=== PATIENT | female | born 1990 | race Caucasian/White ===

== ENCOUNTER 2016-12-17 21:14 | Emergency (ER) | payer BC ==
[2016-12-17] MEDS ORDERED: LORazepam 1 MG TAB PO STA (21:55)
[2016-12-17] MEDS ORDERED: SODIUM CHLORIDE 0.9% 1,000 ML with MVI, ADULT NO.4 WITH VIT K 10 ML, THIAMINE 100 MG, F... IV ONE ×4 (22:00)
[2016-12-17] MEDS ORDERED: ONDANSETRON 4 MG/2 ML VIAL IM STA (22:03)
[2016-12-17] MEDS ORDERED: ONDANSETRON 4 MG/2 ML VIAL IVP STA (22:09)
[2016-12-17] MEDS ORDERED: LORazepam 2 MG/ML SYRINGE IV STA (22:42)
[2016-12-17 22:43] LABS: Basophils % (A) 0 %; CH 23.7; CHCM 31.5; Eosinophils % (A) 0 %; HDW 3.31; HGB 12.6 gm/dL (11.4-16.0); Hypochromasia Moderate; Luc % (Auto) 2; Lymphocytes # (A) 2.2 k/uL (1.0-4.8); Lymphocytes % (A) 25 %; MCHC 30.6 g/dL (31.0-37.0); MCV 75.2 fL (80.0-100.0); Mean Platelet Volume 6.6; Microcytosis Slight; Monocytes # (A) 0.7 k/uL (0-1.0); Monocytes % (A) 8 %; Neutrophils # (A) 5.7 k/uL (1.3-7.7); Neutrophils % (A) 64 %; RBC 5.46 m/uL (3.80-5.40); RDW 14.9 % (11.5-15.5); WBC 8.9 k/uL (3.8-10.6); WBC (Perox) 8.74
[2016-12-17 22:53] LABS: ALT 73 U/L (9-52); AST 107 U/L (14-36); Alkaline Phosphatase 97 U/L (38-126); Amylase 63 U/L (30-110); Anion Gap 18 mmol/L; Blood Urea Nitrogen 8 mg/dL (7-17); Carbon Dioxide 28 mmol/L (22-30); Chloride 98 mmol/L (98-107); Glucose 77 mg/dL (74-99); Non-African American GFR(MDRD) >60 (>60 ml/min/1.73 sqM); Potassium 3.7 mmol/L (3.5-5.1); Sodium 144 mmol/L (137-145); Total Bilirubin 0.5 mg/dL (0.2-1.3); Total Protein 7.6 g/dL (6.3-8.2)
--- NOTE | 2016-12-17 23:22 | ED ---
General Adult HPI - General Chief complaint: Nausea/Vomiting/Diarrhea Stated complaint: Withdrawal Time Seen by Provider: 12/17/16 21:33 Source: patient, RN notes reviewed, old records reviewed Mode of arrival: ambulatory Limitations: no limitations - History of Present Illness Initial comments: This is a 25-year-old female with chief complaint of going through alcohol withdrawal. Patient reports that she is nauseated and vomited. Patient states that she relapsed on . Patient reports that she's been doing and intensive outpatient and outpatient treatment for alcohol dependence. Patient states that she also has severe anxiety. She reports that she has severe separation anxiety from her service dog and her family members. Patient reports that splits kept her from doing any intensive inpatient treatments. Patient states that her last drink was 8 hours ago when she started to go through withdrawals. Patient's blood alcohol level is 0.260. Patient states that she is here for alcohol withdrawal help. She reports she is concerned she' ll have a seizure. Again patient seems to be extremely anxious. He denies any active suicidal thoughts, denies any plan to harm herself. Denies homicidal thoughts. - Related Data Home Medications Medication Instructions Recorded Confirmed DULoxetine HCL [Cymbalta] 60 mg PO DAILY 11/06/15 12/17/16 Atomoxetine HCl [Strattera] 80 mg PO DAILY 12/17/16 12/17/16 QUEtiapine FUMARATE [SEROquel] 100 mg PO HS 12/17/16 12/17/16 lamoTRIgine [LaMICtal] 100 mg PO DAILY 12/17/16 12/17/16 Allergies Allergy/AdvReac Type Severity Reaction Status Date / Time No Known Allergies Allergy Verified 12/17/16 21:33 Review of Systems ROS Statement: Those systems with pertinent positive or pertinent negative responses have been documented in the HPI. ROS Other: All systems not noted in ROS Statement are negative. 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 History of Any Multi-Drug Resistant Organisms: None Reported Past Surgical History: Orthopedic Surgery Additional Past Surgical History / Comment(s): bone spur removed from right scapula Past Anesthesia/Blood Transfusion Reactions: No Reported Reaction Past Psychological History: Anxiety, Depression, PTSD Smoking Status: Current every day smoker Past Alcohol Use History: Abuse Past Drug Use History: Marijuana - Past Family History Father Family Medical History: No Reported History Mother Family Medical History: No Reported History General Exam - General Exam Comments Initial Comments: This is a 25-year-old female. Patient appears intoxicated. Limitations: no limitations General appearance: alert, in no apparent distress, appears intoxicated Head exam: Present: atraumatic, normocephalic, normal inspection Eye exam: Present: normal appearance, PERRL, EOMI. Absent: scleral icterus, conjunctival injection, periorbital swelling ENT exam: Present: normal exam, mucous membranes moist Neck exam: Present: normal inspection. Absent: tenderness, meningismus, lymphadenopathy Respiratory exam: Present: normal lung sounds bilaterally. Absent: respiratory distress, wheezes, rales, rhonchi, stridor Cardiovascular Exam: Present: regular rate, normal rhythm, normal heart sounds. Absent: systolic murmur, diastolic murmur, rubs, gallop, clicks GI/Abdominal exam: Present: soft, normal bowel sounds. Absent: distended, tenderness, guarding, rebound, rigid Extremities exam: Present: normal inspection, full ROM, normal capillary refill. Absent: tenderness, pedal edema, joint swelling, calf tenderness Back exam: Present: normal inspection Neurological exam: Present: alert, oriented X3, CN II-XII intact Psychiatric exam: Present: normal affect, anxious (patient is extremely anxjious , continues to ask where mother is, and wants her therapy dog. ). Absent: normal mood Skin exam: Present: warm, dry, intact, normal color. Absent: rash Course Vital Signs 12/17/16 12/18/16 12/18/16 21:22 01:24 03:44 Temperature 98 F 98.2 F 97.4 F L Pulse Rate 120 H 125 H 105 H Respiratory 20 18 18 Rate Blood Pressure 161/85 124/91 132/94 O2 Sat by Pulse 98 98 98 Oximetry - Reevaluation(s) Reevaluation #1: 12/18/16 02:58 Patient was also to be admitted and then she decided to report her IV out. Patient reports that she wants to go home. I did call the mother this time and mother will pick her up. Medical Decision Making - Medical Decision Making This is a 25-year-old female with chief complaint of going through alcohol withdrawal. Patient reports that she is nauseated and vomited. Patient states that she relapsed on . Patient reports that she's been doing and intensive outpatient and outpatient treatment for alcohol dependence. Patient states that she also has severe anxiety. She reports that she has severe separation anxiety from her service dog and her family members. Patient reports that splits kept her from doing any intensive inpatient treatments. Patient states that her last drink was 8 hours ago when she started to go through withdrawals. Patient's blood alcohol level is 0.260. Patient states that she is here for alcohol withdrawal help. She reports she is concerned she' ll have a seizure. Again patient seems to be extremely anxious. He denies any active suicidal thoughts. Patient is extremely anxious, and we had to explan to her multiple times that she needs to see a psychiatrist and get inpatient treatment ot help with her addiction. Patient agrees and had to discuss this with mother on the phone. Then patient became frustrated at the time it was taking her to get a bed upstairs. Patient decided to Rip IV out. Discussed that if she did not want to be in ED, we can treat her withdrawals outpatiently with librium and nausea medication. Patient agrees and does not want to go to the hospital. Patient will now not be admitted. Mother was called and stated that she would pick her daughter up. Mother was not pleased that daughter wanted to go, discussed that there was nothing I could do to keep her there, without her being suicidal, mother refused to petition her. Discussed that alcohol inoxication and withdrawal can be managed in outpatient setting. Patient will go home, given referrals to psych treatment facilities. - Lab Data Result diagrams: 12/17/16 22:10 12/17/16 22:10 Lab Results 12/17/16 12/17/16 12/18/16 Range/Units 22:10 22:10 01:36 WBC 8.9 (3.8-10.6) k/uL RBC 5.46 H (3.80-5.40) m/uL Hgb 12.6 (11.4-16.0) gm/dL Hct 41.0 (34.0-46.0) % MCV 75.2 L (80.0-100.0) fL MCH 23.0 L (25.0-35.0) pg MCHC 30.6 L (31.0-37.0) g/dL RDW 14.9 (11.5-15.5) % Plt Count 460 H (150-450) k/uL Neutrophils % 64 % Lymphocytes % 25 % Monocytes % 8 % Eosinophils % 0 % Basophils % 0 % Neutrophils # 5.7 (1.3-7.7) k/uL Lymphocytes # 2.2 (1.0-4.8) k/uL Monocytes # 0.7 (0-1.0) k/uL Eosinophils # 0.0 (0-0.7) k/uL Basophils # 0.0 (0-0.2) k/uL Hypochromasia Moderate Microcytosis Slight Sodium 144 (137-145) mmol/L Potassium 3.7 (3.5-5.1) mmol/L Chloride 98 (98-107) mmol/L Carbon Dioxide 28 (22-30) mmol/L Anion Gap 18 mmol/L BUN 8 (7-17) mg/dL Creatinine 0.70 (0.52-1.04) mg/dL Est GFR (MDRD) Af Amer >60 (>60 ml/min/1.73 sqM) Est GFR (MDRD) Non-Af >60 (>60 ml/min/1.73 sqM) Glucose 77 (74-99) mg/dL Calcium 10.0 (8.4-10.2) mg/dL Total Bilirubin 0.5 (0.2-1.3) mg/dL AST 107 H (14-36) U/L ALT 73 H (9-52) U/L Alkaline Phosphatase 97 (38-126) U/L Total Protein 7.6 (6.3-8.2) g/dL Albumin 4.5 (3.5-5.0) g/dL Amylase 63 (30-110) U/L Lipase 51 (23-300) U/L Urine Opiates Screen Detected H (NotDetected) Ur Oxycodone Screen Not Detected (NotDetected) Urine Methadone Screen Not Detected (NotDetected) Ur Propoxyphene Screen Not Detected (NotDetected) Ur Barbiturates Screen Not Detected (NotDetected) U Tricyclic Antidepress Detected H (NotDetected) Ur Phencyclidine Scrn Not Detected (NotDetected) Ur Amphetamines Screen Not Detected (NotDetected) U Methamphetamines Scrn Not Detected (NotDetected) U Benzodiazepines Scrn Detected H (NotDetected) Urine Cocaine Screen Not Detected (NotDetected) U Marijuana (THC) Screen Detected H (NotDetected) Disposition Clinical Impression: Alcohol abuse, Anxiety Disposition: HOME SELF-CARE Condition: Stable Referrals: Kenya Khan MD [Primary Care Provider] - 1-2 days Time of Disposition: 02:18
[2016-12-18] MEDS ORDERED: SODIUM CHLORIDE 0.9% 500 ML IV ONE (01:17)
[2016-12-18] MEDS ORDERED: THIAMINE 100 MG/ML 2 ML VIAL IM STA (01:18)
[2016-12-18] MEDS ORDERED: LORazepam 2 MG/ML SYRINGE IV PRN ×3 (01:18)
[2016-12-18 01:25] VITALS: RESP 18
[2016-12-18] MEDS ORDERED: IBUPROFEN 400 MG TAB PO PRN (02:14)
[2016-12-18] MEDS ORDERED: NALOXONE 0.4 MG/ML 1 ML VIAL IV PRN (02:14)
[2016-12-18] MEDS ORDERED: KETOROLAC 30 MG/ML 1 ML VIAL IVP PRN (02:14)
[2016-12-18] MEDS ORDERED: ONDANSETRON 4 MG/2 ML VIAL IVP PRN (02:14)
[2016-12-18] MEDS ORDERED: SODIUM CHLORIDE 0.9% 1,000 ML IV SCH (02:15)
[2016-12-18] MEDS ORDERED: LORazepam 1 MG TAB PO STA (03:41)
[2016-12-18 03:45] VITALS: BP 132/94; PULSE 105; TEMP 97.4
[2016-12-18] MEDS ORDERED: chlordiazePOXIDE 25 MG CAP PO STA (03:45)
[2016-12-18] MEDS ORDERED: PANTOPRAZOLE 40 MG/10 ML VIAL IV SCH (09:00)
[2016-12-18] MEDS ORDERED: THIAMINE 100 MG TAB PO SCH (17:00)
== END 2016-12-18 03:53 | disposition home or self-care (01) ==
LOC: EC 21:14 → 3SUR 12-18 02:23 → UNDOADMOB 12-18 02:23 → EC 12-18 03:53
DX: F10.10 Alcohol abuse, uncomplicated (principal); F32.9 Major depressive disorder, single episode, unspecified; F41.9 Anxiety disorder, unspecified; F43.10 Post-traumatic stress disorder, unspecified; F17.200 Nicotine dependence, unspecified, uncomplicated; Z79.899 Other long term (current) drug therapy
CPT/HCPCS: 99284; 96365; 96366 ×5; 96375 ×2; 96376; 82075; 36415; 80053; 82150; 83690; 85025; 80306; J2060 ×2; J3411; J2405

== ENCOUNTER 2017-02-16 17:51 | Emergency (ER) | payer BC ==
[2017-02-16 18:03] VITALS: BP 150/94; PULSE 109; RESP 20; TEMP 98.6
--- NOTE | 2017-02-16 18:13 | ED ---
Upper Extremity HPI - General Chief Complaint: Extremity Injury, Upper Stated Complaint: right wrist injury, puncture wound Time Seen by Provider: 02/16/17 18:08 Source: patient, RN notes reviewed Mode of arrival: ambulatory Limitations: no limitations - History of Present Illness Initial Comments: 26-year-old female presented emergency department for right wrist injury. Patient states that one to 2 weeks ago she grabbed a long getting out from kayaking states something punctured her palmar aspect of her hand towards her wrist. She states that now the pain and swelling has moved into her wrist and states that she has severe wrist pain. Patient is right-hand dominant. Denies any paresthesias at this time but states that she did have some numbness to her fifth digit which resolved right after the injury. Patient denies any pain in her elbow and denies any right axilla pain. Patient said no fevers no chills. Patient denies any redness to the area no drainage. She states that nothing was ever stuck her hand she states that this helped her hand. - Related Data Home Medications Medication Instructions Recorded Confirmed DULoxetine HCL [Cymbalta] 60 mg PO DAILY 11/06/15 02/16/17 Atomoxetine HCl [Strattera] 80 mg PO DAILY 12/17/16 02/16/17 lamoTRIgine [LaMICtal] 100 mg PO DAILY 12/17/16 02/16/17 Ibuprofen [Motrin] 800 mg PO Q8H PRN 02/16/17 02/16/17 QUEtiapine [SEROquel] 50 mg PO HS 02/16/17 02/16/17 Previous Rx's Medication Instructions Recorded Acetaminophen-Codeine 300-30mg 1 tab PO Q4H PRN #20 tablet 02/16/17 [Tylenol #3] Cephalexin [Keflex] 500 mg PO Q6HR #40 cap 02/16/17 Allergies Allergy/AdvReac Type Severity Reaction Status Date / Time No Known Allergies Allergy Verified 02/16/17 18:19 Review of Systems ROS Statement: Those systems with pertinent positive or pertinent negative responses have been documented in the HPI. ROS Other: All systems not noted in ROS Statement are negative. 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 History of Any Multi-Drug Resistant Organisms: None Reported Past Surgical History: Orthopedic Surgery Additional Past Surgical History / Comment(s): bone spur removed from right scapula Past Anesthesia/Blood Transfusion Reactions: No Reported Reaction Past Psychological History: Anxiety, Depression, PTSD Smoking Status: Current every day smoker Past Alcohol Use History: Abuse Past Drug Use History: Marijuana - Past Family History Father Family Medical History: No Reported History Mother Family Medical History: No Reported History General Exam Limitations: no limitations General appearance: alert, in no apparent distress Head exam: Present: atraumatic, normocephalic, normal inspection Respiratory exam: Present: normal lung sounds bilaterally. Absent: respiratory distress, wheezes, rales, rhonchi, stridor Cardiovascular Exam: Present: regular rate, normal rhythm, normal heart sounds. Absent: systolic murmur, diastolic murmur, rubs, gallop, clicks Extremities exam: Present: other (Right lower hand there is a small puncture wound the palmar aspect with no erythema there is no tenderness or bladder but she does have tenderness the right wrist normal water surface with no erythema no warmth patient has pain with pronation supination there is no lymph nodes palpable in the epitrochlear region or right axilla there is no evidence of lymphangitis.) Course Vital Signs 02/16/17 17:59 Temperature 98.6 F Pulse Rate 109 H Respiratory 20 Rate Blood Pressure 150/94 O2 Sat by Pulse 99 Oximetry Medical Decision Making - Medical Decision Making 26-year-old female presented for right wrist pain. There is no obvious deformity there is no strong evidence for infection though she did have a puncture wound. There is no evidence of foreign body on x-ray or on physical exam. Patient does complain of moderate discomfort with palpation area. But has good radial pulse and capillary refill less than 2 seconds. Patient given pain medication, antibiotics and followed up with orthopedics if no improvement. Disposition Clinical Impression: Right wrist pain, Puncture wound Disposition: HOME SELF-CARE Condition: Stable Instructions: Wrist Injury (ED), Puncture Wound (ED) Additional Instructions: Please return to the Emergency Department if symptoms worsen or any other concerns. Prescriptions: Acetaminophen-Codeine 300-30mg [Tylenol #3] 1 tab PO Q4H PRN #20 tablet PRN Reason: pain Cephalexin [Keflex] 500 mg PO Q6HR #40 cap Referrals: None,Stated [Primary Care Provider] - 1-2 days Jeferson Cross, [Doctor of Osteopathic Medicine] - 1-2 days Time of Disposition: 18:38
--- NOTE | 2017-02-16 18:31 | XR ---
EXAMINATION TYPE: XR wrist complete RT DATE OF EXAM: 02/16/2017 COMPARISON: NONE HISTORY: Pain TECHNIQUE: 4 views FINDINGS: I see no fracture nor dislocation. Joint spaces are normal. There are no pathologic calcifi cations. IMPRESSION: Negative right wrist exam.
== END 2017-02-16 18:47 | disposition home or self-care (01) ==
LOC: EC 17:51
DX: S61.531A Puncture wound without foreign body of right wrist, initial encounter (principal); F41.9 Anxiety disorder, unspecified; F32.9 Major depressive disorder, single episode, unspecified; F43.10 Post-traumatic stress disorder, unspecified; F17.200 Nicotine dependence, unspecified, uncomplicated; Z79.899 Other long term (current) drug therapy; W45.8XXA Other foreign body or object entering through skin, initial encounter; Y93.16 Activity, rowing, canoeing, kayaking, rafting and tubing
CPT/HCPCS: 99283

== ENCOUNTER 2017-05-07 11:18 | Inpatient (IN) | payer BC ==
[2017-05-07] MEDS ORDERED: ONDANSETRON 4 MG/2 ML VIAL IVP STA (11:42)
[2017-05-07] MEDS ORDERED: SODIUM CHLORIDE 0.9% 2,000 ML IV STA (11:42)
--- NOTE | 2017-05-07 12:04 | ED ---
Nausea/Vomiting/Diarrhea HPI - General Chief complaint: Nausea/Vomiting/Diarrhea Stated complaint: WEAKNESS, NAUSEA AND VOMITING X 5 DAYS Time Seen by Provider: 05/07/17 11:42 Source: patient, RN notes reviewed Mode of arrival: ambulatory Limitations: no limitations - History of Present Illness Initial comments: 26-year-old female presents emergency department chief complaint of nausea vomiting diarrhea the last 4 days. Patient states that she cannot keep anything down. Patient states only occasional sips of water. Patient states she is concerned about being dehydrated. She states that she has had no sick contacts or recent antibiotic use no traveling. Patient denies any chest pain, headache, dizziness, fever or chills. Denies dysuria hematuria. Denies any chance of - Related Data Home Medications Medication Instructions Recorded Confirmed DULoxetine HCL [Cymbalta] 60 mg PO DAILY 11/06/15 05/07/17 Atomoxetine HCl [Strattera] 80 mg PO DAILY 12/17/16 05/07/17 lamoTRIgine [LaMICtal] 100 mg PO DAILY 12/17/16 05/07/17 QUEtiapine [SEROquel] 50 mg PO HS 02/16/17 05/07/17 Allergies Allergy/AdvReac Type Severity Reaction Status Date / Time No Known Allergies Allergy Verified 05/07/17 11:45 Review of Systems ROS Statement: Those systems with pertinent positive or pertinent negative responses have been documented in the HPI. ROS Other: All systems not noted in ROS Statement are negative. 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 History of Any Multi-Drug Resistant Organisms: None Reported Past Surgical History: Orthopedic Surgery Additional Past Surgical History / Comment(s): bone spur removed from right scapula,rt knee Past Anesthesia/Blood Transfusion Reactions: No Reported Reaction Past Psychological History: Anxiety, Depression, PTSD Smoking Status: Current every day smoker Past Alcohol Use History: Abuse Past Drug Use History: Marijuana - Past Family History Father Family Medical History: No Reported History Mother Family Medical History: No Reported History General Exam Limitations: no limitations General appearance: alert, in no apparent distress Head exam: Present: atraumatic, normocephalic, normal inspection ENT exam: Present: normal exam, normal oropharynx, mucous membranes moist Neck exam: Present: normal inspection. Absent: tenderness, meningismus, lymphadenopathy Respiratory exam: Present: normal lung sounds bilaterally. Absent: respiratory distress, wheezes, rales, rhonchi, stridor Cardiovascular Exam: Present: normal rhythm, tachycardia, normal heart sounds. Absent: systolic murmur, diastolic murmur, rubs, gallop, clicks GI/Abdominal exam: Present: soft, tenderness (Mild diffuse), normal bowel sounds. Absent: distended, guarding, rebound, rigid Back exam: Absent: CVA tenderness (R), CVA tenderness (L) Skin exam: Present: warm, dry, intact, normal color. Absent: rash Course Vital Signs 05/07/17 05/07/17 05/07/17 11:24 12:25 13:00 Temperature 97.9 F Pulse Rate 122 H 97 Respiratory 20 16 18 Rate Blood Pressure 99/57 95/51 O2 Sat by Pulse 100 100 Oximetry 05/07/17 14:00 Temperature Pulse Rate 99 Respiratory 16 Rate Blood Pressure 106/54 O2 Sat by Pulse 100 Oximetry Medical Decision Making - Lab Data Result diagrams: 05/07/17 12:00 05/07/17 12:00 Lab Results 05/07/17 05/07/17 05/07/17 Range/Units 12:00 12:00 14:05 WBC 19.5 H (3.8-10.6) k/uL RBC 3.96 (3.80-5.40) m/uL Hgb 9.8 L (11.4-16.0) gm/dL Hct 30.3 L (34.0-46.0) % MCV 76.5 L (80.0-100.0) fL MCH 24.7 L (25.0-35.0) pg MCHC 32.3 (31.0-37.0) g/dL RDW 16.6 H (11.5-15.5) % Plt Count 590 H (150-450) k/uL Neutrophils % Not Reportable Neutrophils % (Manual) 82 % Band Neutrophils % 4 % Lymphocytes % Not Reportable Lymphocytes % (Manual) 7 % Monocytes % Not Reportable Monocytes % (Manual) 4 % Eosinophils % Not Reportable Basophils % Not Reportable Metamyelocytes % 3 % Myelocytes % 2 % Neutrophils # Not Reportable Neutrophils # (Manual) 16.70 H (1.3-7.7) k/uL Lymphocytes # Not Reportable Lymphocytes # (Manual) 1.37 (1.0-4.8) k/uL Monocytes # Not Reportable Monocytes # (Manual) 0.78 (0-1.0) k/uL Eosinophils # Not Reportable Basophils # Not Reportable Metamyelocytes # (Man) 0.59 H (0) k/uL Myelocytes # (Manual) 0.39 H (0) k/uL Nucleated RBCs 0 (0-0) /100 WBC Manual Slide Review Performed Toxic Granulation Present Poikilocytosis (manual Present Anisocytosis Slight Microcytosis Slight Sodium 128 L (137-145) mmol/L Potassium 3.9 (3.5-5.1) mmol/L Chloride 89 L (98-107) mmol/L Carbon Dioxide 22 (22-30) mmol/L Anion Gap 17 mmol/L BUN 21 H (7-17) mg/dL Creatinine 1.26 H (0.52-1.04) mg/dL Est GFR (MDRD) Af Amer >60 (>60 ml/min/1.73 sqM) Est GFR (MDRD) Non-Af 52 (>60 ml/min/1.73 sqM) Glucose 129 H (74-99) mg/dL Calcium 8.8 (8.4-10.2) mg/dL Total Bilirubin 0.5 (0.2-1.3) mg/dL AST 104 H (14-36) U/L ALT 93 H (9-52) U/L Alkaline Phosphatase 121 (38-126) U/L Total Protein 6.8 (6.3-8.2) g/dL Albumin 3.4 L (3.5-5.0) g/dL Amylase <30 L (30-110) U/L Lipase 31 (23-300) U/L Urine Color Yellow Urine Appearance Cloudy H (Clear) Urine pH 6.0 (5.0-8.0) Ur Specific [place] 1.008 (1.001-1.035) Urine Protein Trace H (Negative) Urine Glucose (UA) Negative (Negative) Urine Ketones Negative (Negative) Urine Blood Moderate H (Negative) Urine Nitrite Positive H (Negative) Urine Bilirubin Negative (Negative) Urine Urobilinogen <2.0 (<2.0) mg/dL Ur Leukocyte Esterase Large H (Negative) Urine RBC 3 (0-5) /hpf Urine WBC 116 H (0-5) /hpf Urine WBC Clumps Moderate H (None) /hpf Ur Squamous Epith Cells 7 H (0-4) /hpf Urine Bacteria Many H (None) /hpf Urine Mucus Rare H (None) /hpf Urine HCG, Qual (Not Detectd) Urine Opiates Screen Not Detected (NotDetected) Ur Oxycodone Screen Not Detected (NotDetected) Urine Methadone Screen Not Detected (NotDetected) Ur Propoxyphene Screen Not Detected (NotDetected) Ur Barbiturates Screen Not Detected (NotDetected) U Tricyclic Antidepress Not Detected (NotDetected) Ur Phencyclidine Scrn Not Detected (NotDetected) Ur Amphetamines Screen Not Detected (NotDetected) U Methamphetamines Scrn Not Detected (NotDetected) U Benzodiazepines Scrn Detected H (NotDetected) Urine Cocaine Screen Not Detected (NotDetected) U Marijuana (THC) Screen Detected H (NotDetected) 05/07/17 Range/Units 14:05 WBC (3.8-10.6) k/uL RBC (3.80-5.40) m/uL Hgb (11.4-16.0) gm/dL Hct (34.0-46.0) % MCV (80.0-100.0) fL MCH (25.0-35.0) pg MCHC (31.0-37.0) g/dL RDW (11.5-15.5) % Plt Count (150-450) k/uL Neutrophils % Neutrophils % (Manual) % Band Neutrophils % % Lymphocytes % Lymphocytes % (Manual) % Monocytes % Monocytes % (Manual) % Eosinophils % Basophils % Metamyelocytes % % Myelocytes % % Neutrophils # Neutrophils # (Manual) (1.3-7.7) k/uL Lymphocytes # Lymphocytes # (Manual) (1.0-4.8) k/uL Monocytes # Monocytes # (Manual) (0-1.0) k/uL Eosinophils # Basophils # Metamyelocytes # (Man) (0) k/uL Myelocytes # (Manual) (0) k/uL Nucleated RBCs (0-0) /100 WBC Manual Slide Review Toxic Granulation Poikilocytosis (manual Anisocytosis Microcytosis Sodium (137-145) mmol/L Potassium (3.5-5.1) mmol/L Chloride (98-107) mmol/L Carbon Dioxide (22-30) mmol/L Anion Gap mmol/L BUN (7-17) mg/dL Creatinine (0.52-1.04) mg/dL Est GFR (MDRD) Af Amer (>60 ml/min/1.73 sqM) Est GFR (MDRD) Non-Af (>60 ml/min/1.73 sqM) Glucose (74-99) mg/dL Calcium (8.4-10.2) mg/dL Total Bilirubin (0.2-1.3) mg/dL AST (14-36) U/L ALT (9-52) U/L Alkaline Phosphatase (38-126) U/L Total Protein (6.3-8.2) g/dL Albumin (3.5-5.0) g/dL Amylase (30-110) U/L Lipase (23-300) U/L Urine Color Urine Appearance (Clear) Urine pH (5.0-8.0) Ur Specific [place] (1.001-1.035) Urine Protein (Negative) Urine Glucose (UA) (Negative) Urine Ketones (Negative) Urine Blood (Negative) Urine Nitrite (Negative) Urine Bilirubin (Negative) Urine Urobilinogen (<2.0) mg/dL Ur Leukocyte Esterase (Negative) Urine RBC (0-5) /hpf Urine WBC (0-5) /hpf Urine WBC Clumps (None) /hpf Ur Squamous Epith Cells (0-4) /hpf Urine Bacteria (None) /hpf Urine Mucus (None) /hpf Urine HCG, Qual Not Detected (Not Detectd) Urine Opiates Screen (NotDetected) Ur Oxycodone Screen (NotDetected) Urine Methadone Screen (NotDetected) Ur Propoxyphene Screen (NotDetected) Ur Barbiturates Screen (NotDetected) U Tricyclic Antidepress (NotDetected) Ur Phencyclidine Scrn (NotDetected) Ur Amphetamines Screen (NotDetected) U Methamphetamines Scrn (NotDetected) U Benzodiazepines Scrn (NotDetected) Urine Cocaine Screen (NotDetected) U Marijuana (THC) Screen (NotDetected) Disposition Clinical Impression: Pyelonephritis, Anemia, Dehydration, Acute kidney injury, Nausea vomiting and diarrhea Disposition: ADMITTED IP TO THIS HOSP Condition: Fair Referrals: Elliot Truong III, MD [Primary Care Provider] - 1-2 days Time of Disposition: 16:03
[2017-05-07 12:08] LABS: Anisocytosis Slight; CH 24.7; CHCM 32.3; HCT 30.3 % (34.0-46.0); HDW 2.61; HGB 9.8 gm/dL (11.4-16.0); Immature Gran Flag Slight; MCH 24.7 pg (25.0-35.0); MCHC 32.3 g/dL (31.0-37.0); MCV 76.5 fL (80.0-100.0); Microcytosis Slight; RBC 3.96 m/uL (3.80-5.40); RDW 16.6 % (11.5-15.5); WBC 19.5 k/uL (3.8-10.6); WBC (Perox) 20.42
[2017-05-07 12:23] LABS: ALT 93 U/L (9-52); AST 104 U/L (14-36); Alkaline Phosphatase 121 U/L (38-126); Amylase <30 U/L (30-110); Anion Gap 17 mmol/L; Blood Urea Nitrogen 21 mg/dL (7-17); Calcium 8.8 mg/dL (8.4-10.2); Carbon Dioxide 22 mmol/L (22-30); Chloride 89 mmol/L (98-107); Glucose 129 mg/dL (74-99); Non-African American GFR(MDRD) 52 (>60 ml/min/1.73 sqM); Potassium 3.9 mmol/L (3.5-5.1); Sodium 128 mmol/L (137-145); Total Bilirubin 0.5 mg/dL (0.2-1.3); Total Protein 6.8 g/dL (6.3-8.2)
[2017-05-07 12:45] LABS: Add Differential Manual Differential
[2017-05-07] MEDS ORDERED: RX INFO: IV CONTRAST WAS GIVEN 1 EACH MISC MISCELLANE PRN (12:47)
[2017-05-07 12:48] LABS: Band Neutrophils % 4 %; Manual Review Performed; Metamyelocytes % 3 %; Myelocytes % 2 %; Nucleated Red Blood Cells 0 /100 WBC (0-0); Total Cells Counted 200; Toxic Granulation Present
[2017-05-07] MEDS ORDERED: SODIUM CHLORIDE 0.9% 1,000 ML IV ONE (12:48)
[2017-05-07 14:32] LABS: Appearance,Urine Cloudy (Clear); Bacteria,Urine Many /hpf; Bilirubin,Urine Negative (Negative); Glucose,Urine (UA) Negative (Negative); Ketones,Urine Negative (Negative); Leukocyte Esterase,Urine Large (Negative); Mucus,Urine Rare /hpf; Nitrite,Urine Positive (Negative); Particle Count 25295; Protein,Urine Trace (Negative); RBC,Urine 3 /hpf (0-5); Specific Gravity,Urine 1.008 (1.001-1.035); Squamous Epithelial Cell,Urine 7 /hpf (0-4); UA Billing (MACRO vs. MICRO) MICRO; Urobilinogen,Urine <2.0 mg/dL (<2.0); WBC,Urine 116 /hpf (0-5)
--- NOTE | 2017-05-07 15:52 | CT ---
EXAMINATION TYPE: CT abdomen pelvis w con DATE OF EXAM: 05/07/2017 COMPARISON: NONE HISTORY: 26 year-old female with nausea and vomiting x5 days. TECHNIQUE: Contiguous axial scanning of the abdomen and pelvis following administration of 100 ml Omn ipaque 300 IV contrast. Delayed images through the kidneys and coronal/sagittal reconstructions perf ormed. CT DLP: 967 mGycm Automated exposure control for dose reduction was used. FINDINGS: The heart is normal size with trace anterior pericardial thickening/fluid. Tiny hiatal hernia. Lung b ases clear without pleural effusion. Small amount of focal fat along the anterior falciform ligament. Liver is mildly enlarged measuring 1 8.8 cm craniocaudal. Portal venous system is patent. No biliary ductal dilatation. Gallbladder, adrenal glands, and pancreas appear within normal limits. Small diverticulum of the seco nd portion of the duodenum projecting into the pancreatic head region. Spleen is mildly enlarged measuring 14.3 cm on axial series. There are bilateral striated nephrograms with the most marked relative hypodensity in the right great er than left upper poles. There is also bilateral urothelial thickening of the collecting systems. A more focal hypodense lesion measuring 1.2 cm in the right lower pole is noted. No dilated small bowel, free fluid, or free air. Some mild scattered stool. No pericolonic inflammato ry change. Short portions of a normal appendix are visualized. Bladder is urine distended. Uterus and left ovary are visualized. Right ovary not well delineated fro m adjacent bowel loops. No abnormal fluid collection the pelvis or pelvic lymphadenopathy seen. Bones: No osseous destructive process. IMPRESSION: 1. BILATERAL STRIATED NEPHROGRAMS, RIGHT GREATER THAN LEFT. ADDITIONALLY UROTHELIAL THICKENING OF THE PROXIMAL COLLECTING SYSTEMS. FINDINGS ARE HIGHLY SUGGESTIVE OF BILATERAL PYELONEPHRITIS. CLINICALLY CORRELATE. 2. THERE IS A 1.2 CM HYPODENSE LESION IN THE LOWER POLE OF THE RIGHT KIDNEY. UNCERTAIN IF THIS REPRES ENTS A CYST OR A SMALL EARLY RENAL ABSCESS. FOLLOW-UP RECOMMENDED. 3. MILD HEPATOSPLENOMEGALY.
[2017-05-07] MEDS ORDERED: cefTRIAXone 2,000 MG in SODIUM CHLORIDE 0.9% 100 ML IVPB STA (15:56)
[2017-05-07] MEDS ORDERED: NALOXONE 0.4 MG/ML 1 ML VIAL IV PRN (16:03)
[2017-05-07] MEDS ORDERED: ONDANSETRON 4 MG/2 ML VIAL IVP PRN (16:03)
[2017-05-07] MEDS ORDERED: ACETAMINOPHEN TAB 325 MG TAB PO PRN (16:03)
[2017-05-07] MEDS: LORazepam 2 MG/ML INJ IV PRN ×2 (16:32→20:31)
[2017-05-07] MEDS ORDERED: TEMAZEPAM 15 MG CAP PO PRN (18:29)
[2017-05-07] MEDS: SODIUM CHLORIDE 0.9% 1,000 ML IV SCH (18:32)
[2017-05-07] MEDS: HYDROcodone/APAP 5-325MG 1 EACH TAB PO PRN (18:33)
--- NOTE | 2017-05-07 18:42 | XR ---
EXAMINATION TYPE: XR chest 1V portable DATE OF EXAM: 05/07/2017 COMPARISON: 10/30/1710 HISTORY: Kidney infection TECHNIQUE: Single frontal view of the chest is obtained. FINDINGS: Heart and mediastinum are normal. Lungs are clear. Diaphragm is normal. Bony thorax appear s normal. IMPRESSION: Normal chest. No change.
[2017-05-07] MEDS: QUEtiapine 50 MG TAB PO SCH (20:31)
--- NOTE | 2017-05-07 21:44 | HP ---
HISTORY AND PHYSICAL DATE OF SERVICE: 05/07/2017 CHIEF COMPLAINT: Weakness, nausea, vomiting and some diarrhea for the last 5 days. Abdominal and back pain. HISTORY OF PRESENT ILLNESS: This 26-year-old woman with a past medical history of multiple medical problems, including anxiety, depression, PTSD, history of nicotine dependence, history of marijuana, history of ETOH, being followed by Dr. Truong in the outpatient setting, also has a history of osteomyelitis of the right heel. Currently the patient is complaining of nausea and vomiting, unable to keep anything down for the last 5 days. The patient was also complaining of back pain. The patient can only take sips of water. Because of increasing difficulty, the patient came to [facility] and was admitted for further evaluation and treatment. White count is elevated at 19.5. Patient had features of bilateral pyelonephritis. Drug screen is positive for THC and benzodiazepines. Patient had an abdominopelvic CT scan study which showed bilateral striated nephrograms, right greater than left, suggestive of bilateral pyelonephritis, and a 1.2 cm hypodense lesion in the lower pole of the right kidney was also noted. Mild hepatosplenomegaly was noted. There is no history of any fever, rigor or chills. No history of headache, loss of consciousness, seizures at this time. PAST MEDICAL HISTORY: 1. History of osteomyelitis of the right heel. 2. Anxiety. 3. Depression. 4. PTSD. 5. History of nicotine dependence. HOME MEDICATIONS: 1. Lamictal 100 mg p.o. daily. 2. Seroquel 50 mg p.o. at bedtime. 3. Cymbalta 60 mg p.o. daily. 4. Strattera 80 mg p.o. daily. ALLERGIES: NONE. FAMILY HISTORY: No history of heart disease or strokes in the family. SOCIAL HISTORY: History of smoking on a daily basis. Occasional alcohol intake. REVIEW OF SYSTEMS: ENT: No diminished hearing. No diminished vision. CARDIOVASCULAR SYSTEM: No angina, palpitations. RESPIRATORY SYSTEM: No cough, hemoptysis. Otherwise as mentioned earlier. GI: As mentioned earlier. : As mentioned earlier. NERVOUS SYSTEM: No numbness, weakness. ALLERGY/IMMUNOLOGY: No asthma, hayfever. MUSCULOSKELETAL: As mentioned earlier. HEMATOLOGY/ONCOLOGY: No history of anemia. ENDOCRINE: As mentioned earlier. CONSTITUTIONAL: As mentioned earlier. DERMATOLOGY: Negative. RHEUMATOLOGY: Negative. PSYCHIATRY: As mentioned earlier. PHYSICAL EXAMINATION: Patient is alert, oriented x3. Pulse is 99, blood pressure 106/54, respiration 16, temperature 101.5, pulse ox 100%. HEENT: Conjunctivae normal. Oral mucosa moist. NECK: No jugular venous distention. No carotid bruit. No lymph node enlargement. CARDIOVASCULAR: S1, S2 muffled. No S3. No S4. RESPIRATORY: Breath sounds diminished at the bases. A few scattered rhonchi and crackles. ABDOMEN: Soft. Mild diffuse discomfort on palpation. No guarding. No rigidity. No mass palpable. LEGS: No edema. No swelling. NERVOUS SYSTEM: Higher functions as mentioned earlier. Moves all 4 limbs. No focal motor or sensory deficit. LYMPHATICS: No lymph node palpable in neck, axillae or groin. SKIN: No ulcer, rash, bleeding. LABS: WBC 19.3, hemoglobin 9.8. Sodium is 128, potassium 3.9. UA noted. ASSESSMENT: 1. Possible bilateral pyelonephritis with sepsis with a urinary tract infection, acute, present on admission. 2. Increased white count. 3. Anemia, microcytic. 4. Hyponatremia. 5. Increased creatinine with acute kidney failure. 6. Increased AST, ALT. 7. History of anxiety, depression, PTSD. 8. History of nicotine dependence. 9. History of ethanol abuse. 10.History of THC. 11.History of osteomyelitis of the right heel. RECOMMENDATION AND DISCUSSION: In this 26-year-old woman who presented with multiple complex medical issues, we will monitor the patient closely, continue the current medication, continue with symptomatic treatment. Otherwise at this time I recommend continuing with the broad-spectrum IV antibiotics. Infectious disease evaluation. The patient was started on Rocephin. Obtain cultures. Guarded prognosis because of multiple complex medical issues. Further recommendations to follow. DVT prophylaxis. Proton pump inhibitors. See orders for further details. Discussed with the patient, who understands and agrees. A copy of this dictation is being forwarded to Dr. Truong, who is the primary physician. PAULETTE / JENNIFFER: [id number] /
[2017-05-08] MEDS: SODIUM CHLORIDE 0.9% 1,000 ML IV SCH ×3 (02:37→20:43)
[2017-05-08] MEDS: HYDROcodone/APAP 5-325MG 1 EACH TAB PO PRN (08:11)
[2017-05-08] MEDS: DULoxetine HCL 60 MG CAPSULE.DR PO SCH (08:12)
[2017-05-08] MEDS: lamoTRIgine 100 MG TAB PO SCH (08:12)
[2017-05-08] MEDS: PANTOPRAZOLE 40 MG TABLET PO SCH (08:12)
[2017-05-08] MEDS ORDERED: NON-FORMULARY DRUG (Atomoxetine Hcl [Strattera] 80 MG) PO SCH (09:00)
[2017-05-08 11:00] LABS: Anion Gap 8 mmol/L; Blood Urea Nitrogen 9 mg/dL (7-17); Calcium 7.5 mg/dL (8.4-10.2); Carbon Dioxide 21 mmol/L (22-30); Chloride 101 mmol/L (98-107); Glucose 86 mg/dL (74-99); Non-African American GFR(MDRD) >60 (>60 ml/min/1.73 sqM); Potassium 3.5 mmol/L (3.5-5.1); Sodium 130 mmol/L (137-145)
[2017-05-08 11:06] LABS: Basophils % (A) 0 %; CH 23.7; CHCM 29.8; Eosinophils % (A) 1 %; HCT 22.9 % (34.0-46.0); HDW 2.59; Hypochromasia Marked; Luc # (Auto) 0.17; Luc % (Auto) 2; Lymphocytes % (A) 11 %; MCH 24.1 pg (25.0-35.0); MCHC 30.4 g/dL (31.0-37.0); MCV 79.4 fL (80.0-100.0); Mean Platelet Volume 7.2; Monocytes # (A) 0.6 k/uL (0-1.0); Monocytes % (A) 6 %; Neutrophils # (A) 7.3 k/uL (1.3-7.7); Neutrophils % (A) 80 %; RBC 2.89 m/uL (3.80-5.40); RDW 15.7 % (11.5-15.5); WBC 9.1 k/uL (3.8-10.6); WBC (Perox) 9.13
[2017-05-08 12:34] LABS: CH 23.8; CHCM 29.7; HCT 22.3 % (34.0-46.0); HDW 2.59; Hypochromasia Marked; MCH 24.4 pg (25.0-35.0); MCHC 30.4 g/dL (31.0-37.0); MCV 80.1 fL (80.0-100.0); Mean Platelet Volume 7.1; RBC 2.78 m/uL (3.80-5.40); RDW 15.5 % (11.5-15.5); WBC 8.6 k/uL (3.8-10.6)
[2017-05-08 12:42] LABS: HGB 6.8 gm/dL (11.4-16.0)
--- NOTE | 2017-05-08 15:39 | P.PN ---
Subjective Date of service 05/08/2017 Personal being dictated for Dr. Miller. Interval history: This is a 26-year-old female admitted with possible bilateral pyelonephritis with sepsis, UTI, acute renal failure and multiple other medical issues. Maintained on IV fluid hydration, Rocephin . Antibiotics as per infectious disease. Creatinine normalized, sodium improved to 130. Receiving [place] for complaints of diffuse abdominal pain,mid Upper and mid lower quadrants as well as bilateral rib cage/ flank pain. Fair appetite. No nausea , vomiting or diarrhea. Specimen collection for C. diff pending. T-max 101.5, WBC normal. Mild tachycardia. Denies chest pain, palpitations or shortness of breath. Hemoglobin 7.0, repeat check 6.8. No rectal bleeding, no melena, no hemoptysis. States she just completed her menses on Sunday; normal menses, without heavy flow. Objective - Vital Signs Vital signs: Vital Signs Temp 99.4 F 05/08/17 07:00 Pulse 110 H 05/08/17 07:00 Resp 18 05/08/17 07:00 BP 102/54 05/08/17 07:00 Pulse Ox 99 05/08/17 07:00 Intake & Output 05/07/17 05/08/17 05/08/17 18:59 06:59 18:59 Intake Total 2448 800 Balance 2448 800 Weight 55.565 kg Intake: Intake, IV Titration 2448 800 Amount Sodium Chloride 0.9% 1, 300 800 000 ml @ 100 mls/hr IV . Q10H CHARIS Rx#:[id number] Sodium Chloride 0.9% 1, 999 000 ml @ 999 mls/hr IV . Q1H1M ONE Rx#:[id number] Sodium Chloride 0.9% 2, 999 000 ml @ 999 mls/hr IV . Q2H1M STA Rx#:[id number] cefTRIAXone 1,000 mg In 50 Sodium Chloride 0.9% 50 ml @ 100 mls/hr IVPB Q12H CHARIS Rx#:[id number] cefTRIAXone 2,000 mg In 100 Sodium Chloride 0.9% 100 ml @ 100 mls/hr IVPB ONCE STA Rx#:[id number] Other: # Voids 2 1 - Exam PHYSICAL EXAM: VITAL SIGNS: As above GENERAL: Sitting up in bed, tired appearing, no acute distress. HEENT: Conjunctivae normal. eyes normal. NECK: No JVD. No thyroid enlargement. No LNs CARDIOVASCULAR: S1, S2 muffled. No murmur RESPIRATION: Breath sounds diminished in the bases. Occasional scattered rhonchi, and crackles. ABDOMEN: Soft, nondistended, mild diffuse abdominal pain. No guarding. no masses palpable.Bowel sounds heard. No guarding, no rigidity. LEGS: No edema. no swelling PSYCHIATRY: Alert and oriented -3, mood and affect flat. NERVOUS SYSTEM: Cranial N 2-12 grossly normal. Moves all 4 limbs. Diffuse weakness No focal deficits. No sensory deficit.. Skin: no ulcer no rash Joints: No active swelling. No inflammation. Lymphatic system. No LN neck axilla or groin. - Labs CBC & Chem 7: 05/08/17 12:03 05/08/17 09:54 Labs: Abnormal Lab Results - Last 24 Hours (Table) 05/08/17 05/08/17 05/08/17 Range/Units 09:54 09:54 12:03 RBC 2.89 L 2.78 L (3.80-5.40) m/uL Hgb 7.0 L* D 6.8 L* (11.4-16.0) gm/dL Hct 22.9 L 22.3 L (34.0-46.0) % MCV 79.4 L (80.0-100.0) fL MCH 24.1 L 24.4 L (25.0-35.0) pg MCHC 30.4 L 30.4 L (31.0-37.0) g/dL RDW 15.7 H (11.5-15.5) % Plt Count 469 H (150-450) k/uL Sodium 130 L (137-145) mmol/L Carbon Dioxide 21 L (22-30) mmol/L Calcium 7.5 L (8.4-10.2) mg/dL Microbiology - Last 24 Hours (Table) 05/07/17 14:05 Urine Culture - Preliminary Urine,Voided Assessment and Plan Plan: 1. Possible bilateral pyelonephritis with sepsis, with UTI, present on admission. 2. [ Anemia, microcytic, possible acute GI bleed, workup in progress]. 3. [ Hyponatremia, improving]. 4. Acute renal failure, improved with IV fluid hydration. 5. Elevated LFTs 6. [ History of anxiety, depression, PTSD]. 7. [ EtOH abuse 8. THC use]. 9. Nicotine dependence Plan: Continue current medication regime , antibiotics, proton pump inhibitor, monitoring and symptomatic treatment. Stool for occult blood pending; if positive consult GI. Serial H&H's ordered. Transfuse one unit of packed RBCs. Follow cultures closely. Infectious disease recommendations pending. The impression and plan of care has been dictated as directed. : I performed a H&P examination of this patient and discussed the same with the dictator. I agree with the dictator's note. Any additional findings/opinions/ etc. will be noted.
[2017-05-08] MEDS: LORazepam 2 MG/ML INJ IV PRN ×2 (16:13→20:52)
[2017-05-08 20:40] LABS: Anisocytosis Slight; CH 25.4; HCT 29.8 % (34.0-46.0); HDW 3.27; Hypochromasia Slight; Immature Gran Flag Marked; MCH 24.6 pg (25.0-35.0); MCHC 30.9 g/dL (31.0-37.0); MCV 79.5 fL (80.0-100.0); Microcytosis Slight; RBC 3.75 m/uL (3.80-5.40); RDW 16.3 % (11.5-15.5); WBC 10.9 k/uL (3.8-10.6); WBC (Perox) 11.38
[2017-05-08 20:42] LABS: HGB 9.2 gm/dL (11.4-16.0)
[2017-05-08] MEDS: QUEtiapine 50 MG TAB PO SCH (20:43)
[2017-05-08 21:10] LABS: Add Differential Manual Differential
[2017-05-08 21:16] LABS: Band Neutrophils % 3 %; Myelocytes % 4 %; Nucleated Red Blood Cells 0 /100 WBC (0-0); Total Cells Counted 200
[2017-05-08 21:17] LABS: Ovalocytes Present
[2017-05-08 21:18] LABS: Large Platelets Present; Spherocytes Present
[2017-05-09] MEDS: LORazepam 2 MG/ML INJ IV PRN ×3 (04:23→13:20)
[2017-05-09 04:24] LABS: Basophils # (A) 0.1 k/uL (0-0.2); Basophils % (A) 1 %; CH 24.5; CHCM 30.4; Eosinophils # (A) 0.1 k/uL (0-0.7); Eosinophils % (A) 1 %; HCT 26.6 % (34.0-46.0); HDW 3.47; HGB 8.2 gm/dL (11.4-16.0); Hypochromasia Marked; Luc % (Auto) 2; Lymphocytes # (A) 1.4 k/uL (1.0-4.8); Lymphocytes % (A) 17 %; MCH 24.9 pg (25.0-35.0); MCV 80.6 fL (80.0-100.0); Mean Platelet Volume 6.7; Monocytes # (A) 0.6 k/uL (0-1.0); Monocytes % (A) 7 %; Neutrophils # (A) 6.1 k/uL (1.3-7.7); Neutrophils % (A) 72 %; Poikilocytosis Slight; RDW 15.5 % (11.5-15.5); WBC 8.4 k/uL (3.8-10.6)
[2017-05-09 04:52] LABS: Ovalocytes Present
[2017-05-09 04:53] LABS: Manual Review Performed
--- NOTE | 2017-05-09 07:28 | CONS ---
CONSULTATION DATE OF SERVICE: 05/08/2017 REASON FOR CONSULTATION: Sepsis and pyelonephritis. HISTORY OF PRESENT ILLNESS: Patient is a 26-year-old, female, who presented to the [facility] ER yesterday with the chief complaints of a nausea, vomiting, lower abdominal pain and some urine symptoms of burning but no frequency, no hematuria. Pain described to be lower abdominal area, some in the flank, dull aching, 5 to 6/10, and no radiation with associated nausea or vomiting. With these symptoms, the patient came to the ER where the patient has been evaluated by the ER physician. The patient did have a CT abdomen and pelvis which is suspicious for a bilateral pyelonephritis. Patient did have a fever of 101.5 degrees Fahrenheit. Did have elevated white count of 19.5. The urine was significantly positive with the urine drug screen positive for marijuana and benzos. Patient has been diagnosed with pyelonephritis, bloody urine culture was obtained. She was started on the Rocephin 1 g q.12. ID was consulted for further recommendation regarding antibiotic therapy. REVIEW OF SYSTEMS: CONSTITUTIONAL: Positive for weakness along with a fever. EYES: No complaint. ENT: No complaint. RESPIRATORY: No complaint. CARDIOVASCULAR: No complaint. GENITOURINARY: As per HPI. GASTROINTESTINAL: As per HPI. MUSCULOSKELETAL: No complaint. INTEGUMENT: No complaint. PSYCHOLOGICAL: No complaint. ENDOCRINE: No complaint. NEUROLOGICAL: No complaint. PAST MEDICAL HISTORY: Osteomyelitis to the right heel, anxiety, depression, PTSD. PAST SURGICAL HISTORY: Bone spur removed from the right scapula and right knee. SOCIAL HISTORY: The patient is currently an every day smoker. Smokes more than a pack a day. Does admit to alcohol abuse and marijuana use. FAMILY HISTORY: No pertinent findings noticed. ALLERGIES: No known drug allergies. MEDICATION: The patient is currently on Tylenol, [place], Rocephin 1 g q.12. She is on Cymbalta, Dilaudid, Lamictal, Ativan, Narcan, Zofran, Protonix, Seroquel, Restoril. PHYSICAL EXAMINATION: Blood pressure is 120/74 with a pulse of 101, temperature of 100, T-max is 101, she is 100% on room air. General description is a young female lying in bed, in no distress. No tachypnea or accessory muscle for respiration use. HEENT examination shows pallor. No scleral icterus. Oral mucosa is dry. Neck trachea is central. No thyromegaly. LUNGS: Unlabored breathing. Clear to auscultation anteriorly. No wheeze or crackle. HEART: S1, S2. Regular rate and rhythm. ABDOMEN: Soft. Tender in the right leg area. No guarding. No rigidity. No organomegaly. EXTREMITIES: No edema of feet. SKIN EXAMINATION: No rash or mass palpable. NEUROLOGICAL: Patient is awake, alert, oriented x3. Mood and affect normal. LABS: Hemoglobin 9.8, white count of 10, admission white count was 19.5 with a BUN of 9, creatinine 0.84. Urine is positive, urine showing a gram-negative blood culture so far negative. DIAGNOSTIC IMPRESSION AND PLAN: Patient admitted to the hospital with sepsis and the patient did have fever of 101 degrees Fahrenheit. Did have elevated white count, tachycardia, meeting criteria for SIRS source likely. Pyelonephritis likely from enteric gram-negative pathogen in a patient who has not been on antibiotic in the recent past. Could be sensitive pathogen such as an E coli. PLAN: 1. Rocephin will be adjusted to 2 g daily. 2. Aggressive IV fluid. 3. Depending on the clinical response as well as cultures, will determine her discharge antibiotic. Thank you for this consultation. Will follow this patient along with you. MMODL / IJN: [id number] /
[2017-05-09] MEDS: DULoxetine HCL 60 MG CAPSULE.DR PO SCH (08:16)
[2017-05-09] MEDS: lamoTRIgine 100 MG TAB PO SCH (08:16)
[2017-05-09] MEDS: PANTOPRAZOLE 40 MG TABLET PO SCH (08:16)
[2017-05-09] MEDS: cefTRIAXone 2,000 MG in SODIUM CHLORIDE 0.9% 100 ML IVPB SCH (08:16)
[2017-05-09] MEDS: SODIUM CHLORIDE 0.9% 1,000 ML IV SCH ×2 (08:16→17:01)
[2017-05-09 09:23] LABS: Anisocytosis Slight; Basophils % (A) 1 %; CH 25.2; CHCM 30.8; Eosinophils # (A) 0.1 k/uL (0-0.7); Eosinophils % (A) 1 %; HCT 30.4 % (34.0-46.0); HDW 3.33; HGB 9.1 gm/dL (11.4-16.0); Hypochromasia Moderate; Luc % (Auto) 1; Lymphocytes # (A) 1.1 k/uL (1.0-4.8); Lymphocytes % (A) 14 %; MCH 24.6 pg (25.0-35.0); MCHC 30.1 g/dL (31.0-37.0); MCV 81.8 fL (80.0-100.0); Mean Platelet Volume 7.4; Monocytes # (A) 0.4 k/uL (0-1.0); Monocytes % (A) 5 %; Neutrophils # (A) 6.2 k/uL (1.3-7.7); Neutrophils % (A) 78 %; RBC 3.72 m/uL (3.80-5.40); RDW 16.5 % (11.5-15.5); WBC 7.9 k/uL (3.8-10.6); WBC (Perox) 7.35
[2017-05-09 10:04] LABS: Anion Gap 11 mmol/L; Blood Urea Nitrogen 4 mg/dL (7-17); Carbon Dioxide 23 mmol/L (22-30); Chloride 102 mmol/L (98-107); Glucose 97 mg/dL (74-99); Non-African American GFR(MDRD) >60 (>60 ml/min/1.73 sqM); Potassium 3.5 mmol/L (3.5-5.1); Sodium 136 mmol/L (137-145)
[2017-05-09] MEDS: HYDROcodone/APAP 5-325MG 1 EACH TAB PO PRN ×4 (10:24→21:48)
--- NOTE | 2017-05-09 12:39 | CDI ---
In responding to this query, please exercise your independent professional judgment. The [facility] Coding Staff and Clinical Documentation Specialists appreciate your assistance in clarifying documentation, maintaining compliance with coding guidelines, accurately documenting patients condition and capturing severity of illness. The fact that a question is asked does not imply that any particular answer is desired or expected. Communication forms are a method of clarifying documentation and are not made part of the Legal Health Record. Thank you in advance for your clarification. Last Revision, June 2015 Phil Bearden [address] [place] [address] Documentation Clarification Form Date: 05/09/2017 12:25:00 PM From: Tianna Harris RN, CDS Admit Date: 05/07/2017 4:02:00 PM Patient Name: Katerina Camargo Visit Number: [id number] Dr. Jose Miller 26 year old patient admitted for Sepsis/Pyelonephritis/UTI and Acute Kidney Failure, Anemia. "anemia microcytic, possible acute gi bleed" documented in progress note. Patient received 1 Unit packed red blood cell transfusion A diagnosis of anemia lacks specificity to accurately reflect your patients severity of condition and clarification is needed. Patient history/risk factors: osteomyelitis right heel Clinical Indicators: H/H 7.0/22.9 and 6.8/22.3 on admission, H/H after PRBC transfusion 9.2/29.8 Treatment: 1U PRBC transfusion, GI consult, CBC daily, In order to capture the severity of condition, please clarify the type of anemia and etiology if known: Acute blood loss anemia Acute on chronic blood loss anemia Unable to determine Other, please specify Please document in your progress notes and discharge summary in order to capture severity of illness and risk of mortality. Include clinical findings that support your diagnosis. FYI: Press F11 to launch patient chart. Thank you. LILA
[2017-05-09] MEDS ORDERED: Potassium Replacement Protocol 1 EACH MISC MISCELLANE PRN (12:49)
--- NOTE | 2017-05-09 12:54 | P.PN ---
Subjective Date of service Progress Note being dictated for Dr. Miller. 05/08/2017Interval history: This is a 26-year-old female admitted with possible bilateral pyelonephritis with sepsis, UTI, acute renal failure and multiple other medical issues. Maintained on IV fluid hydration, Rocephin . Antibiotics as per infectious disease. Creatinine normalized, sodium improved to 130. Receiving [place] for complaints of diffuse abdominal pain,mid Upper and mid lower quadrants as well as bilateral rib cage/ flank pain. Fair appetite. No nausea, vomiting or diarrhea. Specimen collection for C. diff pending. T- max 101.5, WBC normal. Mild tachycardia. Denies chest pain, palpitations or shortness of breath. Hemoglobin 7.0, repeat check 6.8. No rectal bleeding, no melena, no hemoptysis. States she just completed her menses on Sunday; normal menses, without heavy flow. 05/09/17 receive 1 unit of packed RBCs yesterday, currently hemoglobin 9.1. No rectal bleeding, no melena, no hemoptysis. Mild tachycardia, heart rates in the low 100s. Evaluated by infectious disease, Rocephin dose increased. Urine culture reporting gram-negative bacilli. Maintained on IV fluid hydration. Reports less discomfort/pain today. T-max 100.5, normal WBC. Objective - Vital Signs Vital signs: Vital Signs Temp 99.5 F 05/09/17 07:00 Pulse 91 05/09/17 07:00 Resp 16 05/09/17 07:00 BP 104/61 05/09/17 07:00 Pulse Ox 98 05/09/17 07:00 Intake & Output 05/08/17 05/09/17 05/09/17 18:59 06:59 18:59 Intake Total 800 310 200 Balance 800 310 200 Intake: Intake, IV Titration 800 Amount Sodium Chloride 0.9% 1, 800 000 ml @ 100 mls/hr IV . Q10H CHARIS Rx#:[id number] Oral 200 Blood Product 0 310 Rc Pheresis 2 As3 Unit 0 310 [id number] Other: # Voids 1 1 - Exam PHYSICAL EXAM: VITAL SIGNS: As above GENERAL: Sitting up in bed, no acute distress. HEENT: Conjunctivae normal. eyes normal. NECK: No JVD. No thyroid enlargement. No LNs CARDIOVASCULAR: S1, S2 muffled. No murmur RESPIRATION: Breath sounds diminished in the bases. Occasional scattered rhonchi, no crackles. ABDOMEN: Soft, nondistended, mild diffuse abdominal pain. No guarding. no masses palpable.Bowel sounds heard. No guarding, no rigidity. LEGS: No edema. no swelling PSYCHIATRY: Alert and oriented -3, mood and affect normal NERVOUS SYSTEM: Cranial N 2-12 grossly normal. Moves all 4 limbs. Diffuse weakness No focal deficits. No sensory deficit.. Skin: no ulcer no rash Joints: No active swelling. No inflammation. Lymphatic system. No LN neck axilla or groin. - Labs CBC & Chem 7: 05/09/17 08:19 05/09/17 08:19 Labs: Abnormal Lab Results - Last 24 Hours (Table) 05/08/17 05/08/17 05/09/17 Range/Units 14:15 19:55 03:41 WBC 10.9 H (3.8-10.6) k/uL RBC 3.75 L 3.30 L (3.80-5.40) m/uL Hgb 9.2 L D 8.2 L (11.4-16.0) gm/dL Hct 29.8 L 26.6 L (34.0-46.0) % MCV 79.5 L (80.0-100.0) fL MCH 24.6 L 24.9 L (25.0-35.0) pg MCHC 30.9 L (31.0-37.0) g/dL RDW 16.3 H (11.5-15.5) % Plt Count 537 H 501 H (150-450) k/uL Neutrophils # (Manual) 8.70 H (1.3-7.7) k/uL Lymphocytes # (Manual) 0.98 L (1.0-4.8) k/uL Myelocytes # (Manual) 0.44 H (0) k/uL Sodium (137-145) mmol/L BUN (7-17) mg/dL Calcium (8.4-10.2) mg/dL Crossmatch See Detail 05/09/17 05/09/17 Range/Units 08:19 08:19 WBC (3.8-10.6) k/uL RBC 3.72 L (3.80-5.40) m/uL Hgb 9.1 L (11.4-16.0) gm/dL Hct 30.4 L (34.0-46.0) % MCV (80.0-100.0) fL MCH 24.6 L (25.0-35.0) pg MCHC 30.1 L (31.0-37.0) g/dL RDW 16.5 H (11.5-15.5) % Plt Count 530 H (150-450) k/uL Neutrophils # (Manual) (1.3-7.7) k/uL Lymphocytes # (Manual) (1.0-4.8) k/uL Myelocytes # (Manual) (0) k/uL Sodium 136 L (137-145) mmol/L BUN 4 L (7-17) mg/dL Calcium 8.0 L (8.4-10.2) mg/dL Crossmatch Microbiology - Last 24 Hours (Table) 05/07/17 20:17 Blood Culture - Preliminary Blood No Growth after 24 hours 05/07/17 14:05 Urine Culture - Preliminary Urine,Voided Gram Neg Bacilli Assessment and Plan Plan: 1. Possible bilateral pyelonephritis with sepsis, with UTI, present on admission. 2. [ Anemia, microcytic, possible acute GI bleed, workup in progress]. 3. [ Hyponatremia, improving]. 4. Acute renal failure, improved with IV fluid hydration. 5. Elevated LFTs 6. [ History of anxiety, depression, PTSD]. 7. [ EtOH abuse 8. THC use]. 9. Nicotine dependence Plan: Continue current medication regime , antibiotics, proton pump inhibitor, monitoring and symptomatic treatment. Maintain IV fluid hydration. Antibiotics as per infectious disease. Follow cultures closely. Increase ambulation as tolerated. Aggressive pulmonary toileting. The impression and plan of care has been dictated as directed. : I performed a H&P examination of this patient and discussed the same with the dictator. I agree with the dictator's note. Any additional findings/opinions/ etc. will be noted.
[2017-05-09 16:12] LABS: ALT 73 U/L (9-52); AST 41 U/L (14-36); Alkaline Phosphatase 70 U/L (38-126); Anion Gap 9 mmol/L; Blood Urea Nitrogen 4 mg/dL (7-17); Calcium 7.9 mg/dL (8.4-10.2); Carbon Dioxide 24 mmol/L (22-30); Chloride 103 mmol/L (98-107); Glucose 93 mg/dL (74-99); Non-African American GFR(MDRD) >60 (>60 ml/min/1.73 sqM); Potassium 3.4 mmol/L (3.5-5.1); Sodium 136 mmol/L (137-145); Total Bilirubin <0.1 mg/dL (0.2-1.3)
--- NOTE | 2017-05-09 20:00 | PN ---
PROGRESS NOTE DATE OF SERVICE: 05/09/2017 REASON FOR FOLLOWUP: Gram-negative right-sided pyelonephritis. INTERVAL HISTORY: The patient's overall fever pattern has improved. Low-grade fever this morning and afebrile afterward. She is still complaining of pain in her right flank area, but no nausea or vomiting and urinary symptoms have improved. No diarrhea. Denies any chest pain, shortness of breath or cough. EXAMINATION: Blood pressure is 119/83 with a pulse of 84, temperature of 97.8. She is 98% on room air. GENERAL DESCRIPTION: A young female lying in bed, in no distress. RESPIRATORY SYSTEM: Unlabored breathing. Clear to auscultation anteriorly. HEART: S1, S2. Regular rate and rhythm. ABDOMEN: Soft, no tenderness. LABS: Hemoglobin 9.1, white count 7.9. BUN of 14, creatinine 0.66. DIAGNOSTIC IMPRESSION AND PLAN: Patient with sepsis, most likely pyelonephritis, urine showing a gram-negative, blood culture negative so far. She will continue with Rocephin 2 g daily while waiting for the culture to finalize. Continue supportive care. MMODL / IJN: [id number] /
[2017-05-09] MEDS: QUEtiapine 50 MG TAB PO SCH (21:48)
[2017-05-10] MEDS: SODIUM CHLORIDE 0.9% 1,000 ML IV SCH ×2 (07:37→14:41)
[2017-05-10] MEDS: PANTOPRAZOLE 40 MG TABLET PO SCH (07:39)
[2017-05-10] MEDS: lamoTRIgine 100 MG TAB PO SCH (07:39)
[2017-05-10] MEDS: cefTRIAXone 2,000 MG in SODIUM CHLORIDE 0.9% 100 ML IVPB SCH (07:39)
[2017-05-10] MEDS: DULoxetine HCL 60 MG CAPSULE.DR PO SCH (07:39)
[2017-05-10] MEDS: HYDROcodone/APAP 5-325MG 1 EACH TAB PO PRN ×4 (07:48→23:04)
[2017-05-10 09:03] LABS: CH 24.5; CHCM 29.8; HCT 28.6 % (34.0-46.0); HDW 3.36; HGB 8.6 gm/dL (11.4-16.0); Hypochromasia Marked; Immature Gran Flag Slight; MCH 24.9 pg (25.0-35.0); MCHC 30.2 g/dL (31.0-37.0); MCV 82.3 fL (80.0-100.0); Mean Platelet Volume 6.6; RBC 3.48 m/uL (3.80-5.40); RDW 15.6 % (11.5-15.5); WBC 7.1 k/uL (3.8-10.6); WBC (Perox) 6.89
[2017-05-10] MEDS ORDERED: Magnesium Replacement Protocol 1 EACH MISC MISCELLANE PRN (09:07)
[2017-05-10 09:08] LABS: Anion Gap 9 mmol/L; Blood Urea Nitrogen 2 mg/dL (7-17); Calcium 7.9 mg/dL (8.4-10.2); Carbon Dioxide 26 mmol/L (22-30); Chloride 106 mmol/L (98-107); Glucose 92 mg/dL (74-99); Non-African American GFR(MDRD) >60 (>60 ml/min/1.73 sqM); Potassium 3.3 mmol/L (3.5-5.1); Sodium 141 mmol/L (137-145)
[2017-05-10 09:21] LABS: Add Differential Manual Differential
[2017-05-10 09:24] LABS: Band Neutrophils % 1 %; Metamyelocytes % 1 %; Nucleated Red Blood Cells 0 /100 WBC (0-0); Total Cells Counted 200
[2017-05-10 09:25] LABS: Toxic Granulation Present
[2017-05-10 09:30] LABS: Ovalocytes Present
[2017-05-10] MEDS: POTASSIUM CHLORIDE ER 20 MEQ TAB.ER PO SCH ×4 (10:09→14:29)
[2017-05-10] MEDS: LORazepam 2 MG/ML INJ IV PRN ×2 (10:52→23:10)
--- NOTE | 2017-05-10 11:10 | P.CONS ---
History of Present Illness - Reason for Consult Consult date: 05/10/17 Anemia Requesting physician: Jose Miller - History of Present Illness 26-year-old female admitted with sepsis secondary to pyelonephritis with history of alcohol disorder abuse 5 years quit 3 months ago and suicidal behavior. Consultation requested for iron deficiency anemia with reports of nausea vomiting midabdominal discomfort and looser bowel movements 1 week. Denies hematemesis hematochezia melena. No history of GI bleed. Admission hemoglobin 9.8 repeated 6.8 received 1 unit of blood present hemoglobin 8.6. MCV 76. Platelet 590. BUN 21. Creatinine 1.2. Total bilirubin 0.5. AST 104. ALT 93. Alkaline phosphatase 121. Patient has regular menstrual cycles; finished last cycle about a week ago. She does report heavy menstrual periods lasting about 5 days soaking 3-4 ultra pads daily. She has a history of anemia requiring iron supplementation. No recent blood transfusions or intravenous iron. Hemoglobin 12/30/16 12 range. Marijuana, benzodiazepines detected through urinalysis. CT abdomen suggestive of bilateral pyelonephritis. Mild hepatosplenomegaly. Denies intravenous drug abuse. Transaminases slightly elevated 40-100 with normal bilirubin and alkaline phosphatase. Review of Systems Constitutional: Denies fever, chills, sweats, weight gain, or loss. HEENT: Negative for migraines, blurred vision or loss, earaches, drainage, tinnitus, oral mucosal lesions, dysphagia, or odynophagia. CARDIAC: Negative for chest pain, arrhythmias, or palpitation. RESPIRATORY: Negative for shortness of breath, hemoptysis, cough, or sputum production. GI: See HPI for pertinent findings. : Negative for hematuria, urgency, frequency, polyuria, or dysuria. GYNc: Denies possibility of . Negative vaginal discharge. MUSCULOSKELETAL: Negative for muscle aches, swelling, arthritis, and arthralgias. NEUROLOGIC: Negative for stroke or TIA. ENDOCRINE: Negative for thyroid problems. SKIN: Negative for rash or itching. PSYCHIATRIC: Alcohol abuse. Suicidal behavior. Bipolar anxiety. PTSD. Depression. 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 Past Anesthesia/Blood Transfusion Reactions: No Reported Reaction Past Psychological History: Anxiety, Bipolar, Depression, PTSD Smoking Status: Current some day smoker Past Alcohol Use History: Abuse Past Drug Use History: Marijuana - Past Family History Father Family Medical History: No Reported History Mother Family Medical History: No Reported History Medications and Allergies Home Medications Medication Instructions Recorded Confirmed Type DULoxetine HCL [Cymbalta] 60 mg PO DAILY 11/06/15 05/07/17 History Atomoxetine HCl [Strattera] 80 mg PO DAILY 12/17/16 05/07/17 History lamoTRIgine [LaMICtal] 100 mg PO DAILY 12/17/16 05/07/17 History QUEtiapine [SEROquel] 50 mg PO HS 02/16/17 05/07/17 History Amoxicillin 500 mg PO Q8H #36 capsule 05/10/17 Rx Allergies Allergy/AdvReac Type Severity Reaction Status Date / Time No Known Allergies Allergy Verified 05/07/17 11:45 Physical Exam Vitals: Vital Signs Temp Pulse Resp BP Pulse Ox 05/10/17 07:00 97.0 F L 87 20 102/61 98 05/09/17 23:00 97.0 F L 74 16 96/60 99 05/09/17 15:00 97.8 F 84 16 119/83 100 Intake and Output 05/09/17 05/10/17 05/10/17 22:59 06:59 14:59 Other: # Voids 1 1 General appearance: The patient is alert, oriented, in no acute distress. HET: Head is normocephalic and atraumatic. Pupils are equal and reactive. Oropharynx is clear without lesions. Neck: Supple without lymphadenopathy. Trachea midline. Heart: S1 S2. Regular rate and rhythm. Lungs: No crackles or wheezes are heard. Abdomen: Soft, mild midabdominal discomfort, nondistended with bowel sounds. No peritoneal signs. No palpable organomegaly or masses. Extremities: Normal skin color and turgor. No cyanosis, rash, ulceration, clubbing, or edema. Radial and pedal pulses are 2/4 bilaterally. Neurological: No focal deficits. Strength and sensation are grossly intact. Results CBC & Chem 7: 05/10/17 08:20 05/10/17 08:20 Labs: Abnormal Lab Results - Last 24 Hours (Table) 05/09/17 05/09/17 05/09/17 Range/Units 08:19 08:19 15:29 RBC 3.72 L (3.80-5.40) m/uL Hgb 9.1 L (11.4-16.0) gm/dL Hct 30.4 L (34.0-46.0) % MCH 24.6 L (25.0-35.0) pg MCHC 30.1 L (31.0-37.0) g/dL RDW 16.5 H (11.5-15.5) % Plt Count 530 H (150-450) k/uL Sodium 136 L 136 L (137-145) mmol/L Potassium 3.4 L (3.5-5.1) mmol/L BUN 4 L 4 L (7-17) mg/dL Calcium 8.0 L 7.9 L (8.4-10.2) mg/dL Total Bilirubin <0.1 L (0.2-1.3) mg/dL AST 41 H (14-36) U/L ALT 73 H (9-52) U/L Total Protein 5.0 L (6.3-8.2) g/dL Albumin 2.3 L (3.5-5.0) g/dL Microbiology - Last 24 Hours (Table) 05/07/17 14:05 Urine Culture - Final Urine,Voided Escherichia coli 05/07/17 20:17 Blood Culture - Preliminary Blood No Growth after [address] scan - abdomen: report reviewed (Dr. Oneill) Assessment and Plan (1) Anemia Narrative/Plan: Microcytic anemia iron deficient without overt GI bleeding. Anemia multifactorial could be related to heavy menses however with a history of underlying EtOH abuse upper GI pathology cannot be excluded. Status: Acute (2) Pyelonephritis Status: Acute (3) Alcohol abuse Status: Chronic (4) Transaminitis Narrative/Plan: possible alcohol related Status: Acute Plan: 1. Patient in mother expressed full endoscopic workup of anemia prior to discharge. 2. Iron indices. 3. We'll proceed with EGD colonoscopy exam tomorrow. 4. CBC monitoring. 5. Protonix 40 g IV daily. 6. Alcohol abstinence advised. 7. Check hepatitis panel secondary to elevated AST/ALT. The title investigator has discussed the risks, benefits and alternative therapies for the above-mentioned procedure and for both sedation/analgesia as well as necessary blood product administration, if indicated, as they pertain to this patient. The patient has indicated understanding and acceptance of the risks and procedures discussed. Thank you for this kind referral and the opportunity to participate in the care of your patient. This consultation was discussed with Dr. Oneill. The impression and plan of care have been directed as dictated.
--- NOTE | 2017-05-10 16:09 | P.PN ---
Subjective Date of service Progress Note being dictated for Dr. Miller. 05/08/2017Interval history: This is a 26-year-old female admitted with possible bilateral pyelonephritis with sepsis, UTI, acute renal failure and multiple other medical issues. Maintained on IV fluid hydration, Rocephin . Antibiotics as per infectious disease. Creatinine normalized, sodium improved to 130. Receiving [place] for complaints of diffuse abdominal pain,mid Upper and mid lower quadrants as well as bilateral rib cage/ flank pain. Fair appetite. No nausea, vomiting or diarrhea. Specimen collection for C. diff pending. T- max 101.5, WBC normal. Mild tachycardia. Denies chest pain, palpitations or shortness of breath. Hemoglobin 7.0, repeat check 6.8. No rectal bleeding, no melena, no hemoptysis. States she just completed her menses on Sunday; normal menses, without heavy flow. 05/09/17 receive 1 unit of packed RBCs yesterday, currently hemoglobin 9.1. No rectal bleeding, no melena, no hemoptysis. Mild tachycardia, heart rates in the low 100s. Evaluated by infectious disease, Rocephin dose increased. Urine culture reporting gram-negative bacilli. Maintained on IV fluid hydration. Reports less discomfort/pain today. T-max 100.5, normal WBC. 05/10/2017 hemoglobin 8.6. Evaluated by GI and scheduled for both EGD and colonoscopy tomorrow. Continues to complain of diffuse abdominal and bilateral flank pain. Good diet intake with no nausea vomiting or diarrhea. Afebrile. Potassium 3.3, magnesium 1.6. Objective - Vital Signs Vital signs: Vital Signs Temp 97.2 F L 05/10/17 15:00 Pulse 86 05/10/17 15:00 Resp 20 05/10/17 15:00 BP 107/69 05/10/17 15:00 Pulse Ox 97 05/10/17 15:00 Intake & Output 05/09/17 05/10/17 05/10/17 18:59 06:59 18:59 Intake Total 400 Balance 400 Intake: Oral 400 Other: Voiding Method Toilet # Voids 3 1 # Bowel Movements 0 - Exam PHYSICAL EXAM: VITAL SIGNS: As above GENERAL: Laying in bed, no acute distress. HEENT: Conjunctivae normal. eyes normal. Oral mucosa moist NECK: No JVD. No thyroid enlargement. No LNs CARDIOVASCULAR: S1, S2 muffled. No murmur RESPIRATION: Breath sounds diminished in the bases. Occasional scattered rhonchi, no crackles. ABDOMEN: Soft, nondistended, mild diffuse abdominal pain. No guarding. no masses palpable.Bowel sounds heard. No guarding, no rigidity. LEGS: No edema. no swelling PSYCHIATRY: Alert and oriented -3, mood and affect normal NERVOUS SYSTEM: Cranial N 2-12 grossly normal. Moves all 4 limbs. Diffuse weakness No focal deficits. No sensory deficit.. Skin: no ulcer no rash Joints: No active swelling. No inflammation. - Labs CBC & Chem 7: 05/10/17 08:20 05/10/17 12:07 Labs: Abnormal Lab Results - Last 24 Hours (Table) 05/09/17 05/10/17 05/10/17 Range/Units 15:29 08:20 08:20 RBC 3.48 L (3.80-5.40) m/uL Hgb 8.6 L (11.4-16.0) gm/dL Hct 28.6 L (34.0-46.0) % MCH 24.9 L (25.0-35.0) pg MCHC 30.2 L (31.0-37.0) g/dL RDW 15.6 H (11.5-15.5) % Plt Count 615 H (150-450) k/uL Metamyelocytes # (Man) 0.07 H (0) k/uL Sodium 136 L (137-145) mmol/L Potassium 3.4 L 3.3 L (3.5-5.1) mmol/L BUN 4 L 2 L (7-17) mg/dL Calcium 7.9 L 7.9 L (8.4-10.2) mg/dL Total Bilirubin <0.1 L (0.2-1.3) mg/dL AST 41 H (14-36) U/L ALT 73 H (9-52) U/L Total Protein 5.0 L (6.3-8.2) g/dL Albumin 2.3 L (3.5-5.0) g/dL 05/10/17 Range/Units 12:07 RBC (3.80-5.40) m/uL Hgb (11.4-16.0) gm/dL Hct (34.0-46.0) % MCH (25.0-35.0) pg MCHC (31.0-37.0) g/dL RDW (11.5-15.5) % Plt Count (150-450) k/uL Metamyelocytes # (Man) (0) k/uL Sodium (137-145) mmol/L Potassium 3.4 L (3.5-5.1) mmol/L BUN (7-17) mg/dL Calcium (8.4-10.2) mg/dL Total Bilirubin (0.2-1.3) mg/dL AST (14-36) U/L ALT (9-52) U/L Total Protein (6.3-8.2) g/dL Albumin (3.5-5.0) g/dL Microbiology - Last 24 Hours (Table) 05/07/17 14:05 Urine Culture - Final Urine,Voided Escherichia coli 05/07/17 20:17 Blood Culture - Preliminary Blood No Growth after 48 hours Assessment and Plan Plan: 1. Possible bilateral pyelonephritis with sepsis, with UTI, present on admission. 2. [ Anemia, microcytic, possible acute GI bleed, etiology unclear, history of EtOH abuse, denied having menses previously, endoscopy procedures pending]. 3. [ Hyponatremia, improving]. 4. Acute renal failure, improved with IV fluid hydration. 5. Elevated LFTs 6. [ History of anxiety, depression, PTSD]. 7. [ EtOH abuse 8. THC use]. 9. Nicotine dependence Plan: Continue current medication regime , antibiotics, proton pump inhibitor, monitoring and symptomatic treatment. Up in chair for all meals. Increase ambulation as tolerated. Maintain IV fluid hydration. Hepatitis panel pending. EGD and colonoscopy scheduled for tomorrow.Follow cultures closely. Aggressive pulmonary toileting. The impression and plan of care has been dictated as directed. : I performed a H&P examination of this patient and discussed the same with the dictator. I agree with the dictator's note. Any additional findings/opinions/ etc. will be noted.
[2017-05-10] MEDS ORDERED: PEG 3350-NA SULF,BICARB,CL/KCL 4,000 ML BOTTLE PO ONE (17:00)
[2017-05-10] MEDS: HYDROmorphone 0.5 MG/0.5 ML SYRINGE IVP PRN ×2 (17:58→21:57)
--- NOTE | 2017-05-10 22:58 | PN ---
PROGRESS NOTE DATE OF SERVICE: 05/10/2017 REASON FOR FOLLOWUP: E. coli right-sided pyelonephritis. INTERVAL HISTORY: The patient is afebrile. She is breathing comfortably. Denies having any chest pain. No shortness of breath or cough. Still has abdominal pain in the right flank area. Nausea, but no vomiting and no diarrhea. PHYSICAL EXAMINATION: Blood pressure 107/67 with a pulse of 86, temperature 97.2. She is 97% on room air. GENERAL DESCRIPTION: A young female lying in bed in no distress. RESPIRATORY SYSTEM: Unlabored breathing. Clear to auscultation anteriorly. HEART: S1, S2. Regular rate and rhythm. ABDOMEN: Soft, no tenderness. LABS: Urine culture finalized with E. coli and this is a sensitive pathogen. Blood culture has been negative. DIAGNOSTIC IMPRESSION AND PLAN: Patient with an Escherichia coli right-sided pyelonephritis, overall responding to Rocephin and her white count normal. Fevers resolved. As the organism is sensitive, recommend finishing therapy with oral amoxicillin. Will keep the patient on IV Zosyn while here in the hospital. Mother was present at bedside and all her questions and concerns were answered. MMODL / IJN: [id number] /
[2017-05-10] MEDS: QUEtiapine 50 MG TAB PO SCH (23:04)
[2017-05-11 01:15] LABS: Iron Saturation 19.89 (12.00-45.00)
[2017-05-11] MEDS: HYDROcodone/APAP 5-325MG 1 EACH TAB PO PRN ×4 (04:00→20:33)
[2017-05-11] MEDS: HYDROmorphone 0.5 MG/0.5 ML SYRINGE IVP PRN ×5 (05:45→23:09)
[2017-05-11] MEDS: SODIUM CHLORIDE 0.9% 1,000 ML IV SCH ×2 (05:45→14:56)
[2017-05-11] MEDS: LORazepam 2 MG/ML INJ IV PRN ×2 (06:02→12:34)
[2017-05-11] MEDS: cefTRIAXone 2,000 MG in SODIUM CHLORIDE 0.9% 100 ML IVPB SCH (08:01)
[2017-05-11 09:19] LABS: Anisocytosis Slight; Basophils % (A) 1 %; CH 24.8; CHCM 29.7; Eosinophils # (A) 0.1 k/uL (0-0.7); Eosinophils % (A) 2 %; HCT 26.7 % (34.0-46.0); HDW 3.25; HGB 8.3 gm/dL (11.4-16.0); Hypochromasia Marked; Luc % (Auto) 2; Lymphocytes # (A) 1.3 k/uL (1.0-4.8); Lymphocytes % (A) 28 %; MCHC 31.2 g/dL (31.0-37.0); MCV 83.4 fL (80.0-100.0); Mean Platelet Volume 7.1; Monocytes # (A) 0.4 k/uL (0-1.0); Monocytes % (A) 7 %; Neutrophils % (A) 61 %; RDW 16.5 % (11.5-15.5); WBC 4.9 k/uL (3.8-10.6); WBC (Perox) 4.66
[2017-05-11 09:48] LABS: Anion Gap 9 mmol/L; Blood Urea Nitrogen <2 mg/dL (7-17); Calcium 8.4 mg/dL (8.4-10.2); Carbon Dioxide 21 mmol/L (22-30); Chloride 110 mmol/L (98-107); Glucose 80 mg/dL (74-99); Magnesium 1.5 mg/dL (1.6-2.3); Non-African American GFR(MDRD) >60 (>60 ml/min/1.73 sqM); Potassium 4.9 mmol/L (3.5-5.1); Sodium 140 mmol/L (137-145)
[2017-05-11] MEDS ORDERED: MIDAZOLAM 2 MG/2 ML VIAL ONE (13:33)
[2017-05-11] MEDS ORDERED: PROPOFOL 10 MG/ML 20 ML VIAL IV ONE (13:33)
[2017-05-11] MEDS ORDERED: LIDOCAINE 1% INJ 10MG/ML (20 ML MDV) ONE (13:33)
[2017-05-11] MEDS ORDERED: IV FLUID CONTINUATION 1,000 ML IV ONE (13:36)
--- NOTE | 2017-05-11 13:50 | PN ---
PROGRESS NOTE DATE OF SERVICE: 05/11/2017 REASON FOR FOLLOWUP: An E. coli right-sided pyelonephritis. INTERVAL HISTORY: The patient is afebrile. She is breathing comfortably. Still complains of pain in the right flank area. Some nausea, but no vomiting. She is currently waiting for upper and lower GI for being worked up for her anemia. PHYSICAL EXAMINATION: On examination, her blood pressure is 99/53 with a pulse of 72, temperature 97. She is 99% on room air. General description is a young female lying in bed, in no distress. RESPIRATORY SYSTEM: Unlabored breathing. Clear to auscultation anteriorly. HEART: S1, S2. Regular rate and rhythm. ABDOMEN: Soft, no tenderness. LABS: Hemoglobin 8.3, white count 4.9 with a BUN of 2, creatinine 0.60. DIAGNOSTIC IMPRESSION AND PLAN: Patient with Escherichia coli right-sided pyelonephritis. Overall fever and white count responded to the Rocephin, we will continue with the plan to finish therapy with p.o. amoxicillin once her GI workup is completed. Mother was present at bedside. Her questions and concerns were answered. MMODL / IJN: [id number] /
--- NOTE | 2017-05-11 14:38 | P.PCN ---
Date of Procedure: 05/11/17 Procedure(s) Performed: Procedures: Esophagogastroduodenoscopy and biopsy. Total colonoscopy. Preoperative diagnosis: Anemia, iron deficiency. Postoperative diagnosis: 1. Esophagitis consistent with Nae esophagitis, biopsies obtained. 2. Mild antral gastritis biopsies obtained. 3. No duodenal ulcer or bleeding. 4. Normal colonoscopy. Preparation: HalfLytely prep. Sedation: Was provided by anesthesia. Brief clinical history:The patient is a 26-year-old female who was admitted with sepsis secondary to pyelonephritis. Has history of alcohol disorder abuse 5 years, quit 3 months ago, and has suicidal behavior. Consultation was requested for iron deficiency anemia with reports of nausea, vomiting and midabdominal discomfort with looser bowel movements 1 week. She denied hematemesis, hematochezia or melena. No history of GI bleed. Admission hemoglobin was 9.8 which dropped to 6.8 for which she received 1 unit of packed cells. Patient has regular but heavy menstrual cycles. She has a history of anemia requiring iron supplementation. No recent blood transfusions or intravenous iron. Hemoglobin 12/30/16 was in the 12 range. There was marijuana and benzodiazepines detected on urinalysis. CT abdomen suggestive of bilateral pyelonephritis. Mild hepatosplenomegaly. Denies intravenous drug abuse. Transaminases slightly elevated 40-100 with normal bilirubin and alkaline phosphatase. The details are summarized in the history and physical and dictated consultation and progress notes. This evaluation is to assess for possible source of GI bleeding and anemia. Procedures: With the patient on her left lateral decubitus position and after informed consent and adequate sedation, I passed the Olympus-GIF 160 video upper endoscope through the cricopharyngeus down the esophagus. GE junction was around 40 cm from the incisors. The endoscope was then advanced into the stomach which was insufflated with air and inspected in detail including the retroflex view in the cardia. Finally, the endoscope was passed the pylorus into the duodenum. Pyloric channel, duodenal bulb, post bulbar area and descending duodenum appeared within normal limits. The antrum showed some mottling and erythema consistent with mild gastritis but no ulcers or erosions. The esophagus showed a background of erythema and scattered whitish sticky exudates over the surface of the esophagus consistent with Nae esophagitis. I obtained biopsies from the duodenum, antrum and esophagus then the endoscope was withdrawn and I then proceeded with the colonoscopy. Perianal area did not show any fissures or fistulas. There were no masses felt on digital rectal examination. The Olympus CFQ 160L video colonoscope was then inserted in the rectum in the usual fashion and advanced to the cecum. The mucosa appeared healthy. No polyps or tumors were seen or any obvious diverticular disease or other pathology. I retroflexed the endoscope in the rectum before the endoscope was withdrawn. The patient tolerated the procedure well. Plan: The patient was reassured and I discussed with her mother. Will await biopsy results. In the meantime, I started her on Diflucan 100 mg daily for a 2 - week course. Will allow a soft diet today and monitor her progress and her blood counts and make further plans accordingly. We would be happy to see as outpatient as needed.
[2017-05-11] MEDS: FLUCONAZOLE 100 MG TAB PO SCH (14:54)
[2017-05-11] MEDS: DULoxetine HCL 60 MG CAPSULE.DR PO SCH (14:55)
[2017-05-11] MEDS: lamoTRIgine 100 MG TAB PO SCH (14:56)
[2017-05-11] MEDS: PANTOPRAZOLE 40 MG TABLET PO SCH (14:56)
--- NOTE | 2017-05-11 16:05 | P.PN ---
Subjective Date of service Progress Note being dictated for Dr. Miller. 05/08/2017Interval history: This is a 26-year-old female admitted with possible bilateral pyelonephritis with sepsis, UTI, acute renal failure and multiple other medical issues. Maintained on IV fluid hydration, Rocephin . Antibiotics as per infectious disease. Creatinine normalized, sodium improved to 130. Receiving [place] for complaints of diffuse abdominal pain,mid Upper and mid lower quadrants as well as bilateral rib cage/ flank pain. Fair appetite. No nausea, vomiting or diarrhea. Specimen collection for C. diff pending. T- max 101.5, WBC normal. Mild tachycardia. Denies chest pain, palpitations or shortness of breath. Hemoglobin 7.0, repeat check 6.8. No rectal bleeding, no melena, no hemoptysis. States she just completed her menses on Sunday; normal menses, without heavy flow. 05/09/17 receive 1 unit of packed RBCs yesterday, currently hemoglobin 9.1. No rectal bleeding, no melena, no hemoptysis. Mild tachycardia, heart rates in the low 100s. Evaluated by infectious disease, Rocephin dose increased. Urine culture reporting gram-negative bacilli. Maintained on IV fluid hydration. Reports less discomfort/pain today. T-max 100.5, normal WBC. 05/10/2017 hemoglobin 8.6. Evaluated by GI and scheduled for both EGD and colonoscopy tomorrow. Continues to complain of diffuse abdominal and bilateral flank pain. Good diet intake with no nausea vomiting or diarrhea. Afebrile. Potassium 3.3, magnesium 1.6. 05/11/2017. Remains NPO. Scheduled for EGD and colonoscopy this afternoon. Abdominal and bilateral flank discomfort persists. No nausea, vomiting. Hemoglobin 8.3, magnesium 1.5. Afebrile. Objective - Vital Signs Vital signs: Vital Signs Temp 97.0 F L 05/11/17 06:19 Pulse 80 05/11/17 06:19 Resp 16 05/11/17 06:19 BP 91/53 05/11/17 06:19 Pulse Ox 98 05/11/17 06:19 Intake & Output 05/10/17 05/11/17 05/11/17 18:59 06:59 18:59 Other: Voiding Method Toilet Toilet # Voids 3 4 # Bowel Movements 5 - Exam PHYSICAL EXAM: VITAL SIGNS: As above GENERAL:Sitting up in bed, no acute distress.Playing cards with mom at bedside. HEENT: Conjunctivae normal. eyes normal. Oral mucosa moist NECK: No JVD. No thyroid enlargement. No LNs CARDIOVASCULAR: S1, S2 muffled. No murmur RESPIRATION: Breath sounds diminished in the bases. Occasional scattered rhonchi, no crackles. ABDOMEN: Soft, nondistended, mild diffuse abdominal pain. No guarding. no masses palpable.Bowel sounds heard. No guarding, no rigidity. LEGS: No edema. no swelling PSYCHIATRY: Alert and oriented -3, mood and affect normal NERVOUS SYSTEM: Cranial N 2-12 grossly normal. Moves all 4 limbs. Diffuse weakness No focal deficits. No sensory deficit.. Skin: no ulcer no rash Joints: No active swelling. No inflammation. - Labs CBC & Chem 7: 05/11/17 08:09 05/11/17 08:09 Labs: Abnormal Lab Results - Last 24 Hours (Table) 05/10/17 05/10/17 05/10/17 Range/Units 08:20 09:30 12:07 Metamyelocytes # (Man) 0.07 H (0) k/uL Potassium 3.4 L (3.5-5.1) mmol/L Iron 36 L (50-170) ug/dL TIBC 181 L (228-460) ug/dL 05/10/17 Range/Units 19:34 Metamyelocytes # (Man) (0) k/uL Potassium 5.2 H (3.5-5.1) mmol/L Iron (50-170) ug/dL TIBC (228-460) ug/dL Microbiology - Last 24 Hours (Table) 05/07/17 20:17 Blood Culture - Preliminary Blood No Growth after 72 hours Assessment and Plan Plan: 1. Possible bilateral pyelonephritis with sepsis, with UTI with E COLI, present on admission. 2. [ Anemia, microcytic, iron deficient possible acute GI bleed, etiology unclear, history of EtOH abuse, heavy menses, endoscopy procedures pending]. 3. [ Hyponatremia, improving]. 4. Acute renal failure, improved with IV fluid hydration. 5. Elevated LFTs 6. [ History of anxiety, depression, PTSD]. 7. [ EtOH abuse 8. THC use]. 9. Nicotine dependence Plan: Continue current medication regime , antibiotics, proton pump inhibitor, monitoring and symptomatic treatment. Maintain IV fluid hydration. EGD and colonoscopy pending. Aggressive pulmonary toileting. The impression and plan of care has been dictated as directed. : I performed a H&P examination of this patient and discussed the same with the dictator. I agree with the dictator's note. Any additional findings/opinions/ etc. will be noted.
[2017-05-11] MEDS: QUEtiapine 50 MG TAB PO SCH (20:33)
[2017-05-12] MEDS: HYDROcodone/APAP 5-325MG 1 EACH TAB PO PRN ×4 (05:56→21:14)
[2017-05-12] MEDS: SODIUM CHLORIDE 0.9% 1,000 ML IV SCH ×2 (06:34→15:25)
[2017-05-12] MEDS: FLUCONAZOLE 100 MG TAB PO SCH (08:08)
[2017-05-12] MEDS: PANTOPRAZOLE 40 MG TABLET PO SCH (08:08)
[2017-05-12] MEDS: cefTRIAXone 2,000 MG in SODIUM CHLORIDE 0.9% 100 ML IVPB SCH (08:08)
[2017-05-12] MEDS: DULoxetine HCL 60 MG CAPSULE.DR PO SCH (08:08)
[2017-05-12] MEDS: lamoTRIgine 100 MG TAB PO SCH (08:08)
[2017-05-12 08:23] LABS: Basophils % (A) 1 %; CH 24.2; CHCM 28.7; Eosinophils # (A) 0.1 k/uL (0-0.7); Eosinophils % (A) 1 %; HCT 31.3 % (34.0-46.0); HDW 3.16; Hypochromasia Marked; Luc # (Auto) 0.08; Luc % (Auto) 1; Lymphocytes # (A) 1.4 k/uL (1.0-4.8); Lymphocytes % (A) 22 %; MCH 24.3 pg (25.0-35.0); MCHC 28.8 g/dL (31.0-37.0); MCV 84.4 fL (80.0-100.0); Mean Platelet Volume 6.7; Monocytes # (A) 0.3 k/uL (0-1.0); Monocytes % (A) 4 %; Neutrophils # (A) 4.6 k/uL (1.3-7.7); Neutrophils % (A) 71 %; RBC 3.71 m/uL (3.80-5.40); RDW 15.9 % (11.5-15.5); WBC 6.5 k/uL (3.8-10.6); WBC (Perox) 6.57
[2017-05-12 08:58] LABS: Anion Gap 8 mmol/L; Blood Urea Nitrogen <2 mg/dL (7-17); Calcium 8.2 mg/dL (8.4-10.2); Carbon Dioxide 23 mmol/L (22-30); Chloride 111 mmol/L (98-107); Glucose 84 mg/dL (74-99); Non-African American GFR(MDRD) >60 (>60 ml/min/1.73 sqM); Potassium 4.7 mmol/L (3.5-5.1); Sodium 142 mmol/L (137-145)
[2017-05-12] MEDS: HYDROmorphone 0.5 MG/0.5 ML SYRINGE IVP PRN ×2 (11:09→19:42)
--- NOTE | 2017-05-12 18:12 | PN ---
PROGRESS NOTE DATE OF SERVICE: 05/12/2017 HISTORY: This 26-year-old woman who was admitted with possible pyelonephritis also had gastrointestinal bleed. Dr. Oneill performed endoscopies, upper and lower. The upper endoscopy showed esophagitis consistent with Nae esophagitis and as well as mild antral gastritis. Colonoscopy appears normal. The patient is closely monitored. Hemoglobin is stable at this time. No chest pain or palpitations. No fever. PHYSICAL EXAM: GENERAL: On exam, alert, oriented x3. VITAL SIGNS: Pulse 78, blood pressure 130/94, respirations 18, temperature 97.8, pulse ox 98% on room air. HEENT: Conjunctivae normal. LUNGS: Breath sounds diminished at the bases. No rhonchi, no crackles. ABDOMEN: Soft. Mild diffuse tenderness present. No guarding, no rigidity. No mass palpable. EXTREMITIES: Legs no edema. NERVOUS SYSTEM: No focal deficits. LABS: WBC 6.5, hemoglobin is 9, sodium 48, potassium 4.7. Cultures are E coli, which is polysensitive. ASSESSMENT: 1. Bilateral pyelonephritis with sepsis secondary to urinary tract infection with Escherichia coli, present on admission. 2. Anemia microcytic, iron deficiency, possibly gastrointestinal bleed secondary to esophagitis and gastritis status post esophagogastroduodenoscopy showing Candidal esophagitis. 3. Heavy menses. 4. Hyponatremia. 5. Acute renal failure, possibly from dehydration. 6. Elevated liver function tests. 7. History of anxiety, depression and post traumatic stress disorder. 8. History of ETOH abuse. 9. THC usage. 10.History of nicotine dependence. RECOMMENDATIONS AND DISCUSSION: I recommend to continue current management, monitoring and symptomatic treatment. Recommend to continue with IV antibiotics. Monitor closely. Otherwise increase ambulation. Guarded prognosis because of multiple complex medical issues. Further recommendations to follow. MMODL / IJN: [id number] /
[2017-05-12] MEDS: QUEtiapine 50 MG TAB PO SCH (21:14)
--- NOTE | 2017-05-12 21:42 | PN ---
PROGRESS NOTE DATE OF SERVICE: 05/12/2017 REASON FOR FOLLOWUP: E coli pyelonephritis. INTERVAL HISTORY: The patient is afebrile. She is breathing slightly comfortable. Some pain in the right flank area. Some nausea but no vomiting and no diarrhea. PHYSICAL EXAMINATION: Blood pressure 134/95 with a pulse of 70, temperature 97.8. She is 98% on room air. General description is a young female lying in bed, in no distress. RESPIRATORY SYSTEM: Unlabored breathing. Clear to auscultation anteriorly. HEART: S1, S2. Regular rate and rhythm. ABDOMEN: Soft, no tenderness. LABS: Hemoglobin is 9 with a white count 6.5, BUN of 2 and creatinine 0.71. DIAGNOSTIC IMPRESSION AND PLAN: Patient with a E coli urinary tract infection with likely right sided pyelonephritis, patient slowly responding to the Rocephin that will be continued with the plan for finish therapy with oral Amoxicillin on discharge. Continue supportive care. MMODL / IJN: [id number] /
[2017-05-13] MEDS: HYDROcodone/APAP 5-325MG 1 EACH TAB PO PRN ×3 (06:16→16:01)
[2017-05-13] MEDS: cefTRIAXone 2,000 MG in SODIUM CHLORIDE 0.9% 100 ML IVPB SCH (07:53)
[2017-05-13] MEDS: FLUCONAZOLE 100 MG TAB PO SCH (07:53)
[2017-05-13] MEDS: lamoTRIgine 100 MG TAB PO SCH (07:53)
[2017-05-13] MEDS: DULoxetine HCL 60 MG CAPSULE.DR PO SCH (07:53)
[2017-05-13] MEDS: PANTOPRAZOLE 40 MG TABLET PO SCH (07:53)
[2017-05-13] MEDS: HYDROmorphone 0.5 MG/0.5 ML SYRINGE IVP PRN ×4 (08:54→22:12)
[2017-05-13] MEDS: SODIUM CHLORIDE 0.9% 1,000 ML IV SCH (12:06)
--- NOTE | 2017-05-13 14:10 | PN ---
PROGRESS NOTE DATE OF SERVICE: 05/13/2017. REASON FOR FOLLOWUP VISIT: 1. E. coli with pyelonephritis. 2. Esophageal candidiasis. INTERVAL HISTORY: The patient is afebrile. She is breathing comfortably. Did have some pain in the right lower quadrant area. The patient denies any nausea or vomiting. Denies any diarrhea. No chest pain. Shortness of breath or cough. EXAMINATION: Blood pressure 135/93 with a pulse of 74, temperature 97.1. She is 98% on room air. General description is a young female lying in bed, in no distress. RESPIRATORY SYSTEM: Unlabored breathing. Clear to auscultation anteriorly. HEART: S1, S2. Regular rate and rhythm. . ABDOMEN: Soft, no tenderness. LABS: Hemoglobin is 9, white count 6.5, BUN of 2, creatinine 0.71. HIV test was ordered yesterday and is currently pending. hepatitis panel was negative. DIAGNOSTIC IMPRESSION AND PLAN: 1. Patient with E. Coli right-sided pyelonephritis in patient with fever and white count responded to the Rocephin. The E. coli sensitive pathogen and will finish therapy with oral amoxicillin. 2. Patient with evidence of esophageal Candidiasis, very unusual for this young lady with no history of diabetes, steroid or MRSA infection. HIV test has been ordered. Will follow the results. Care was discussed in detail with the patient as well as the attending physician. MMODL / LEONELN: [id number] / MTDElpidio
[2017-05-13] MEDS: QUEtiapine 50 MG TAB PO SCH (22:13)
[2017-05-14] MEDS: HYDROmorphone 0.5 MG/0.5 ML SYRINGE IVP PRN ×2 (04:35→08:27)
[2017-05-14 07:42] VITALS: BP 134/93; PULSE 73; RESP 18; TEMP 96.3
[2017-05-14] MEDS: PANTOPRAZOLE 40 MG TABLET PO SCH (08:24)
[2017-05-14] MEDS: SODIUM CHLORIDE 0.9% 1,000 ML IV SCH (08:24)
[2017-05-14] MEDS: lamoTRIgine 100 MG TAB PO SCH (08:24)
[2017-05-14] MEDS: DULoxetine HCL 60 MG CAPSULE.DR PO SCH (08:24)
[2017-05-14] MEDS: FLUCONAZOLE 100 MG TAB PO SCH (08:24)
[2017-05-14] MEDS: cefTRIAXone 2,000 MG in SODIUM CHLORIDE 0.9% 100 ML IVPB SCH (08:25)
[2017-05-14] MEDS: HYDROcodone/APAP 5-325MG 1 EACH TAB PO PRN (11:33)
--- NOTE | 2017-05-14 15:56 | PN ---
PROGRESS NOTE DATE OF SERVICE: 05/14/2017. REASON FOR FOLLOWUP VISIT: 1. E. coli pyelonephritis. 2. Esophageal candidiasis. INTERVAL HISTORY: The patient is afebrile. She is breathing comfortably. She was seen on rounds this morning. No nausea, no vomiting. Still some pain in the right flank area, but no diarrhea. PHYSICAL EXAMINATION: Blood pressure is 134/93 with a pulse of 73, temperature 96.3. He is 97% on room air. General description is a young female lying in bed, in no distress. Respiratory system unlabored breathing, clear to auscultation anteriorly. Heart S1, S2. Regular rate and rhythm. Abdomen soft, no tenderness. LABS: No new labs have been obtained today. Blood cultures were negative. DIAGNOSTIC IMPRESSION AND PLAN: Patient with E coli right-sided pyelonephritis sensitive to pathogen. PLAN: We will finish therapy with p.o. amoxicillin for another 10 days with outpatient followup. MMODL / IJN: [id number] /
--- NOTE | 2017-05-14 18:02 | PN ---
PROGRESS NOTE ADDENDUM: Please add: Anemia unable to determine the cause. MMODL / IJN: [id number] /
--- NOTE | 2017-05-14 19:06 | P.DS ---
Providers Date of admission: 05/07/17 16:02 Attending physician: Jose Miller Consults: 05/07/17 18:22 Consult Physician Routine Consulting Provider: William Triana Consult Reason/Comments: sepsis Do you want consulting provider notified?: Yes 05/09/17 14:29 Consult Physician Routine Consulting Provider: Quentin Oneill Consult Reason/Comments: anemia Do you want consulting provider notified?: Yes Primary care physician: Elliot Moon [facility] Course: This 26-year-old woman with a past medical history multiple medical problems was admitted with acute pyelonephritis with sepsis. Patient was treated with antibiotics. E. coli was grown from the cultures. Patient was significantly. patient also had anemia. EGD colonoscopy did not show any acute abnormality. Recommended close follow-up in the outpatient setting. On exam vitals stable. Cardio S1 and S2 normal. Abdomen soft nontender. Respirator system clear to auscultation. The patient be discharged in a stable pressure the guarded prognosis with further plans to follow up in the outpatient setting. Total time taken 35 minutes. 1. Bilateral pyelonephritis acute with sepsis presents present on admission secondary to UTI with E. coli. 2. Anemia macrocytic of undetermined origin. 3. Candidal esophagitis. 4. Hyponatremia. 5. Acute renal failure. 6. Elevated LFTs. 7. History of anxiety depression. 8. History of EtOH. Patient Condition at Discharge: Fair Plan - Discharge Summary New Discharge Prescriptions: New Amoxicillin 500 mg PO Q8H #36 capsule Fluconazole [Diflucan] 100 mg PO DAILY #7 tab HYDROcodone/APAP 5-325MG [[place] 5-325] 1 each PO Q4HR PRN #30 tab PRN Reason: Moderate Pain Pantoprazole [Protonix] 40 mg PO AC-BRKFST #30 tab Continue DULoxetine HCL [Cymbalta] 60 mg PO DAILY lamoTRIgine [LaMICtal] 100 mg PO DAILY Atomoxetine HCl [Strattera] 80 mg PO DAILY QUEtiapine [SEROquel] 50 mg PO HS Discharge Medication List DULoxetine HCL [Cymbalta] 60 mg PO DAILY 11/06/15 [History] Atomoxetine HCl [Strattera] 80 mg PO DAILY 12/17/16 [History] lamoTRIgine [LaMICtal] 100 mg PO DAILY 05/07/17 [History] QUEtiapine [SEROquel] 50 mg PO HS 02/16/17 [History] Amoxicillin 500 mg PO Q8H #36 capsule 05/10/17 [Rx] Fluconazole [Diflucan] 100 mg PO DAILY #7 tab 05/14/17 [Rx] HYDROcodone/APAP 5-325MG [[place] 5-325] 1 each PO Q4HR PRN #30 tab 05/14/17 [Rx] Pantoprazole [Protonix] 40 mg PO AC-BRKFST #30 tab 05/14/17 [Rx] Follow up Appointment(s)/Referral(s): Elliot Truong III, MD [Primary Care Provider] - 1 Week William Triana MD [STAFF PHYSICIAN] - 1 Week Ambulatory/Diagnostic Orders: Complete Blood Count w/diff [LAB.AMB] Location: Determined By Patient Patient Instructions/Handouts: Kidney Infection (DC), Anemia (DC) Activity/Diet/Wound Care/Special Instructions: Regular diet. Activity as tolerated. Smoking cessation information provided and encouraged. no etoh attend rehab, AA Discharge Disposition: HOME SELF-CARE
--- NOTE | 2017-05-14 23:23 | PN ---
PROGRESS NOTE DATE OF SERVICE: 05/13/2017 This 26-year-old woman was admitted with bilateral pyelonephritis _ anemia. EGD was done; esophageal parul was noted. No chest pain. No palpitations. No fever. The culture showed E coli. PHYSICAL EXAMINATION: Alert, oriented x3. Pulse 77, blood pressure 140/79, respirations 16, temperature 97.1, pulse ox 100% on room air. HEENT: Conjunctivae normal. NECK: No jugular venous distention. CARDIOVASCULAR SYSTEM: S1, S2 muffled. RESPIRATORY SYSTEM: Breath sounds diminished at the bases. A few scattered rhonchi. ABDOMEN: Soft, non-tender. LEGS: No edema. No swelling. NERVOUS SYSTEM: No focal deficit. LAB: Hemoglobin, WBC noted. ASSESSMENT: 1. Bilateral pyelonephritis and sepsis secondary to urinary tract infection with Escherichia coli, present on admission. 2. Anemia, normocytic, iron deficiency; undetermined etiology. Status post EGD and colonoscopy. 3. Hyponatremia. 4. Acute renal failure, possibly from dehydration. RECOMMENDATIONS AND DISCUSSION: I recommend to continue current medication, continue symptomatic treatment. Closely monitor. Further recommendations to follow. MMODL / IJN: [id number] / LILA
== END 2017-05-14 13:39 | disposition home or self-care (01) | DRG 872 ==
LOC: EC 11:18 → 4MS4W 16:02
PROVIDERS: ADMIT Hospitalist; ATTEND Hospitalist
PROC: 0DB58ZX Excision of Esophagus, Via Natural or Artificial Opening Endoscopic, Diagnostic (ICD-10-PCS; 2017-05-11)
PROC: 0DJD8ZZ Inspection of Lower Intestinal Tract, Via Natural or Artificial Opening Endoscopic (ICD-10-PCS; 2017-05-11)
PROC: 0DB98ZX Excision of Duodenum, Via Natural or Artificial Opening Endoscopic, Diagnostic (ICD-10-PCS; principal; 2017-05-11 13:00)
PROC: 0DB68ZX Excision of Stomach, Via Natural or Artificial Opening Endoscopic, Diagnostic (ICD-10-PCS; 2017-05-11 13:00)
DX: A41.51 Sepsis due to Escherichia coli [E. coli] (principal); N17.9 Acute kidney failure, unspecified; B37.81 Candidal esophagitis; E87.1 Hypo-osmolality and hyponatremia; N10 Acute pyelonephritis; D53.9 Nutritional anemia, unspecified; N92.0 Excessive and frequent menstruation with regular cycle; K29.60 Other gastritis without bleeding; E86.0 Dehydration; F41.8 Other specified anxiety disorders; F43.10 Post-traumatic stress disorder, unspecified; F12.90 Cannabis use, unspecified, uncomplicated; F10.10 Alcohol abuse, uncomplicated; F17.200 Nicotine dependence, unspecified, uncomplicated; Z79.899 Other long term (current) drug therapy
CPT/HCPCS: 36415; 43239; 45378; 71010; 74177; 80048; 80053; 80074; 80306; 81001; 81025; 82150; 82728; 83540; 83550; 83690; 83735; 84132; 85025; 85027; 86850; 86900; 86901; 86920; 87040; 87077; 87086; 87186; 87390; 88305; 88342; 96361; 96365; 96375; 99285

== ENCOUNTER 2017-05-21 01:36 | Emergency (ER) | payer BC ==
[2017-05-21] MEDS ORDERED: ACETAMINOPHEN TAB 500 MG TAB PO STA (03:13)
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
[2017-05-21] MEDS ORDERED: LORazepam 1 MG TAB PO STA (08:51)
[2017-05-21 08:59] VITALS: BP 122/71; PULSE 109; RESP 20; TEMP 97.1
== END 2017-05-21 09:45 | disposition home or self-care (01) ==
LOC: EC 01:36
DX: F43.20 Adjustment disorder, unspecified (principal); F10.129 Alcohol abuse with intoxication, unspecified; F43.10 Post-traumatic stress disorder, unspecified; F31.9 Bipolar disorder, unspecified; F17.200 Nicotine dependence, unspecified, uncomplicated; Z79.899 Other long term (current) drug therapy
CPT/HCPCS: 80306; 82075; 99285

== ENCOUNTER 2017-06-15 21:51 | Emergency (ER) | payer OTHER, BC ==
[2017-06-15] MEDS ORDERED: RX INFO: IV CONTRAST WAS GIVEN 1 EACH MISC MISCELLANE PRN (22:11)
[2017-06-15] MEDS ORDERED: SODIUM CHLORIDE 0.9% 500 ML IV STA (22:11)
[2017-06-15] MEDS ORDERED: SODIUM CHLORIDE 0.9% 1,000 ML IV STA (22:11)
[2017-06-15] MEDS ORDERED: ACETAMINOPHEN IV (For NPO) 1,000 MG in EMPTY BAG 1 BAG IVPB STA (22:12)
[2017-06-15] MEDS ORDERED: TRANEXAMIC ACID 1,000 MG in SODIUM CHLORIDE 0.9% 100 ML IV STA (22:15)
[2017-06-15 22:23] LABS: Glucose,Whole Blood 127 mg/dL (75-99)
[2017-06-15 22:27] LABS: Anisocytosis Slight; CH 26.8; CHCM 31.3; HCT 34.8 % (34.0-46.0); HDW 3.28; HGB 10.7 gm/dL (11.4-16.0); Hypochromasia Moderate; MCH 26.2 pg (25.0-35.0); MCHC 30.7 g/dL (31.0-37.0); MCV 85.4 fL (80.0-100.0); Mean Platelet Volume 6.4; RBC 4.08 m/uL (3.80-5.40); RDW 16.8 % (11.5-15.5); WBC 18.4 k/uL (3.8-10.6)
--- NOTE | 2017-06-15 22:29 | XR ---
EXAMINATION TYPE: XR chest 1V portable DATE OF EXAM: 06/15/2017 COMPARISON: 05/07/2017 HISTORY: Chest pain TECHNIQUE: Single frontal view of the chest is obtained. FINDINGS: A single view of the chest on the backboard shows a normal heart and mediastinum. Lungs ar e clear. There is no sign of pleural effusion or pneumothorax. There are chest leads. IMPRESSION: Normal chest. No change.
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
[2017-06-15 22:35] LABS: Potassium 3.6 mmol/L (3.5-5.1)
[2017-06-15 22:36] LABS: Ionized Calcium 4.8 mg/dL (4.5-5.3)
[2017-06-15 22:43] LABS: INR 1.1 (<1.2); Prothrombin Time 11.1 sec (9.0-12.0)
[2017-06-15 22:45] LABS: Partial Thromboplastin Time 20.9 sec (22.0-30.0)
[2017-06-15] MEDS ORDERED: TRANEXAMIC ACID 1,000 MG in SODIUM CHLORIDE 0.9% 100 ML IV ONE (22:45)
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
[2017-06-15 22:49] VITALS: BP 127/86; PULSE 86; RESP 24
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
--- NOTE | 2017-06-15 23:00 | XR ---
EXAMINATION TYPE: XR humerus LT DATE OF EXAM: 06/15/2017 COMPARISON: NONE HISTORY: Trauma and pain TECHNIQUE: Single view FINDINGS: There is a midshaft fracture of the left humerus with almost 90 degree lateral angulation a t the fracture site. Elbow joint and shoulder joint appear intact. IMPRESSION: Angulated midshaft fracture of the left humerus.
[2017-06-15] MEDS ORDERED: DIPH,PERTUS(ACELL)TETVAC-LF 0.5 ML VIAL IM ONE (23:02)
[2017-06-15] MEDS ORDERED: ceFAZolin 1,000 MG in DEXTROSE/WATER 1 50ML.BAG IVPB STA (23:02)
[2017-06-15] MEDS: MORPHINE SULFATE 10 MG/ML SYRINGE IVP ONE ×2 (23:12→23:28)
--- NOTE | 2017-06-15 23:24 | XR ---
EXAMINATION TYPE: XR humerus LT DATE OF EXAM: 06/15/2017 COMPARISON: To the HISTORY: Follow-up fracture TECHNIQUE: Single view FINDINGS: There is midshaft fracture of the left humerus. There is 50% lateral displacement of the di stal fragment. There is fairly normal alignment. IMPRESSION: There is significant reduction of the humerus fracture compared to the initial exam. I se e no complicating process.
--- NOTE | 2017-06-15 23:25 | XR ---
EXAMINATION TYPE: XR femur LT DATE OF EXAM: 06/15/2017 COMPARISON: NONE HISTORY: Pain TECHNIQUE: 4 views FINDINGS: I see no fracture nor dislocation. There is soft tissue deformity over the lateral thigh co nsistent with laceration. Hip joint and knee joint appear intact. IMPRESSION: No acute bony abnormality of the femur.
[2017-06-15 23:26] LABS: ALT 65 U/L (9-52); AST 126 U/L (14-36); Alkaline Phosphatase 67 U/L (38-126); Amylase 49 U/L (30-110); Blood Urea Nitrogen 7 mg/dL (7-17); Creatine Kinase 197 U/L (30-135); Glucose 120 mg/dL (74-99); Non-African American GFR(MDRD) >60 (>60 ml/min/1.73 sqM); Total Bilirubin 0.3 mg/dL (0.2-1.3); Total Protein 6.3 g/dL (6.3-8.2)
[2017-06-15 23:29] LABS: Appearance,Urine Clear (Clear); Bacteria,Urine Rare /hpf; Bilirubin,Urine Negative (Negative); Glucose,Urine (UA) Negative (Negative); Ketones,Urine Negative (Negative); Leukocyte Esterase,Urine Negative (Negative); Mucus,Urine Rare /hpf; Nitrite,Urine Negative (Negative); PH, Urine 5.5 (5.0-8.0); Particle Count 4493; Protein,Urine 1+ (Negative); RBC,Urine 1 /hpf (0-5); Specific Gravity,Urine 1.016 (1.001-1.035); Squamous Epithelial Cell,Urine <1 /hpf (0-4); UA Billing (MACRO vs. MICRO) MICRO; Urobilinogen,Urine <2.0 mg/dL (<2.0); WBC,Urine 8 /hpf (0-5)
[2017-06-15 23:38] LABS: Creatine Kinase MB 1.3 ng/mL (0.0-2.4); Troponin I <0.012 ng/mL (0.000-0.034)
== END 2017-06-16 00:37 | disposition other institution (70) ==
LOC: EC 21:51
DX: S12.001A Unspecified nondisplaced fracture of first cervical vertebra, initial encounter for closed fracture (principal); S12.101A Unspecified nondisplaced fracture of second cervical vertebra, initial encounter for closed fracture; S12.201A Unspecified nondisplaced fracture of third cervical vertebra, initial encounter for closed fracture; S12.301A Unspecified nondisplaced fracture of fourth cervical vertebra, initial encounter for closed fracture; S32.502A Unspecified fracture of left pubis, initial encounter for closed fracture; S42.302A Unspecified fracture of shaft of humerus, left arm, initial encounter for closed fracture; S36.032A Major laceration of spleen, initial encounter; S32.10XA Unspecified fracture of sacrum, initial encounter for closed fracture; S01.412A Laceration without foreign body of left cheek and temporomandibular area, initial encounter; F10.120 Alcohol abuse with intoxication, uncomplicated; G95.9 Disease of spinal cord, unspecified; R40.2412 Glasgow coma scale score 13-15, at arrival to emergency department; F41.9 Anxiety disorder, unspecified; F43.10 Post-traumatic stress disorder, unspecified; F31.9 Bipolar disorder, unspecified; F17.200 Nicotine dependence, unspecified, uncomplicated; Z23 Encounter for immunization; Z79.899 Other long term (current) drug therapy; V03.10XA Pedestrian on foot injured in collision with car, pick-up truck or van in traffic accident, initial encounter
CPT/HCPCS: 90471 ×2; 99291 ×2; 24505 ×2; 96365 ×2; 96375 ×4; 96361; 93005; 86901; 86900; 80051; 82330; 82040; 82150; 82247; 82310; 36415; 82565; 82550; 82553; 83690; 84075; 84155; 82947; 84450; 84460; 84520; 84484; 85027; 85384; 85610; 85730; 86850; 81001; 80306; 71010; 72170; 73552; 73060; 72125; 70486; 70450; 71260; 74177; 90715; P9016; P9059; J2270; Q9967; J0690; J0131; 86920

== ENCOUNTER 2017-10-18 05:42 | Day surgery (SDC) | payer BC, OTHER ==
[2017-10-16 12:54] VITALS: BMI 25.8
[~2017-10-18 05:42] MED LIST: ceFAZolin IN SWFI 2 GM/20 ML SYRINGE IVP ONE; metroNIDAZOLE-NS PMX 500 MG in SALINE 1 100ML.BAG IVPB ONE
[2017-10-18] MEDS ORDERED: ONDANSETRON 4 MG/2 ML VIAL IVP ONE (05:58)
[2017-10-18] MEDS ORDERED: DEXAMETHASONE SOD PHOSPHATE 10 MG/ML 1 ML VIAL IV ONE (05:58)
[2017-10-18] MEDS ORDERED: LACTATED RINGERS 1,000 ML IV SCH (05:58)
[2017-10-18] MEDS ORDERED: SCOPOLAMINE 1.5MG/72HR PATCH TRANSDERM ONE (05:58)
[2017-10-18 06:38] VITALS: TEMP 98.1
[2017-10-18] MEDS ORDERED: LIDOCAINE 1% 20 ML VIAL (10MG/ML) FOR IV START INTRADERMA ONE (06:46)
[2017-10-18] MEDS: MIDAZOLAM 2 MG/2 ML VIAL IV PRN ×2 (06:49→07:19)
[2017-10-18] MEDS ORDERED: MIDAZOLAM 2 MG/2 ML VIAL ONE (07:34)
[2017-10-18] MEDS ORDERED: ONDANSETRON 4 MG/2 ML VIAL ONE (07:34)
[2017-10-18] MEDS ORDERED: DEXAMETHASONE SOD PHOS (MDV) 100 MG/10 ML VIAL ONE (07:34)
[2017-10-18] MEDS ORDERED: KETOROLAC 30 MG/ML 1 ML VIAL ONE (07:34)
[2017-10-18] MEDS ORDERED: LIDOCAINE 1% INJ 10MG/ML (20 ML MDV) ONE (07:34)
[2017-10-18] MEDS ORDERED: PROPOFOL 10 MG/ML 20 ML VIAL IV ONE (07:34)
[2017-10-18] MEDS ORDERED: MEPERIDINE 50 MG/ML SYRINGE ONE (07:34)
[2017-10-18] MEDS ORDERED: fentaNYL (PF) 50 MCG/ML 2 ML AMP ONE (07:34)
[2017-10-18] MEDS ORDERED: SUCCINYLCHOLINE CHLORIDE 100 MG/5 ML SYR IV ONE (07:34)
[2017-10-18] MEDS ORDERED: LACTATED RINGERS 1,000 ML IV ONE (10:36)
[2017-10-18] MEDS: ENALAPRILAT 1.25 MG/ML 1 ML VIAL IVP ONE ×2 (11:52→12:10)
[2017-10-18] MEDS: MORPHINE SULFATE 2 MG/ML SYRINGE IV PRN ×2 (11:54→11:59)
[2017-10-18] MEDS ORDERED: diphenhydrAMINE 50 MG/ML 1 ML VIAL IVP ONE (12:06)
[2017-10-18 13:10] VITALS: BP 126/86; PULSE 94; RESP 18
--- NOTE | 2017-10-18 13:25 | P.OP ---
Date of Procedure: 10/18/17 Preoperative Diagnosis: Fractured teeth and caries Postoperative Diagnosis: Stable oral condition Procedure(s) Performed: -4 BWs -Periodic Exam -#5-DO Resin with theracal LC and Filtek bulk shade A2 -#8-IF Resin with Filtek [place] Shade A3. Tooth may require future crown due to loss of tooth structure. -#9-DILF Resin with Filtek Shade A3. Tooth may require future crown due to loss of tooth structure. -#10-Root Extraction -#12-DO Amalgam with Theracal LC and copalite, decay/fracture was deep. Pt may require future RCT due to close proximity to pulp chamber and may require future crown if RCT needed. -#13-MO Amalgam with copalite -#14-DOL Resin with Filtek Bulk shade A2. -#15-DB Amalgam with Theracal LC and copalite -#18-Resin Core with theracal LC and Filtek Bulk shade A2. Tooth will require future crown due to loss of tooth structure. -#19-Resin Core with Theracal LC and Filtek Bulk shade A2. Tooth will require future crown due to loss of tooth structure. -#20-MOL/B Resin with theracal lc and filtek bulk shade A2. -#21-B Resin with filtek bulk shade A2. -#22-B Resin with filtek bulk shade A2. -#29-Resin Core with theracal LC and Filtek bulk shade A2. Tooth broken to gumline on distal and very close to nerve. May require future RCT and will need future crown. -#30-Resin core with theracal LC and Filtek bulk shade A2. Tooth will require future crown. -#31-Resin core with theracal LC and Filtek bulk shade A2. Tooth broken to gumline on distal and very close to nerve. Tooth may require future RCT and will need future crown. -Upper alginate impression for upper flexite partial (Shade A3) as a temporary to replace tooth #10 until a permanent replacement option chosen (3 unit bridge or implant and implant supported crown with abutment. Post op instructions given to patient's mother. Consent form signed by patient prior to treatment. Operative Findings: Broken teeth and fillings resulting in caries Description of Procedure: See procedures performed Plan - Discharge Summary New Discharge Prescriptions: No Action RX: DULoxetine HCL [Cymbalta] 60 mg PO DAILY RX: lamoTRIgine [LaMICtal] 100 mg PO DAILY RX: Atomoxetine HCl [Strattera] 80 mg PO DAILY RX: QUEtiapine [SEROquel] 50 mg PO HS RX: Pantoprazole [Protonix] 40 mg PO AC-BRKFST #30 tab hydrOXYzine PAMOATE [Vistaril] 25 mg PO QID PRN PRN Reason: Anxiety Diazepam [Valium] 2 mg PO BID Discharge Medication List RX: DULoxetine HCL [Cymbalta] 60 mg PO DAILY 11/06/15 [History] RX: Atomoxetine HCl [Strattera] 80 mg PO DAILY 12/17/16 [History] RX: lamoTRIgine [LaMICtal] 100 mg PO DAILY 12/17/16 [History] RX: QUEtiapine [SEROquel] 50 mg PO HS 02/16/17 [History] RX: Pantoprazole [Protonix] 40 mg PO AC-BRKFST #30 tab 05/14/17 [Rx] Diazepam [Valium] 2 mg PO BID 10/18/17 [History] hydrOXYzine PAMOATE [Vistaril] 25 mg PO QID PRN 10/18/17 [History] Patient Instructions/Handouts: *Surgery [facility] - (Anesthesia) Discharge Instructions Outpatient Surgery Activity/Diet/Wound Care/Special Instructions: DATE OF EXTRACTION; KEEP BITING ON THE GUAZE YOU LEFT THE OFFICE WITH FOR A HALF AN HOUR. DO NOT CHANGE IT. DO NOT RINSE OR SPIT. NO SMOKING NO ALCOHOL NO DRINKING THROUGH A STRAW OR SUCKING ON HARD CANDY NO SPITTING OR RINSING THE MOUTH IN THE FIRST FEW HOURS tOMORROW: AFTER 24 HOURS, YOU CAN RINSE TWICE A DAY WITH SALT AND WATER NO RESTRICTIONS IN DIET
== END 2017-10-18 13:38 | disposition home or self-care (01) ==
LOC: OR 05:42
PROVIDERS: ATTEND Dentist General Practice
DX: S02.5XXA Fracture of tooth (traumatic), initial encounter for closed fracture (principal); V03.00XA Pedestrian on foot injured in collision with car, pick-up truck or van in nontraffic accident, initial encounter; K02.9 Dental caries, unspecified; F32.9 Major depressive disorder, single episode, unspecified; F43.10 Post-traumatic stress disorder, unspecified; F90.0 Attention-deficit hyperactivity disorder, predominantly inattentive type; F41.9 Anxiety disorder, unspecified; Z79.891 Long term (current) use of opiate analgesic; Z79.899 Other long term (current) drug therapy
CPT/HCPCS: 81025; 41899; J2250; J1200; J1100 ×2; J2175; J2405; J2001; J3010; J1885; J2270; J0330; J2704; J0690

== ENCOUNTER → 2017-11-02 | Outpatient (CLI) | payer BC ==
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
== END ==
LOC: RADCTMAIN 11:36
PROVIDERS: ATTEND Surgery
DX: S36.039A Unspecified laceration of spleen, initial encounter (principal)
CPT/HCPCS: 74160; Q9967

== ENCOUNTER 2017-11-28 21:13 | Emergency (ER) | payer OTHER, BC ==
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
--- NOTE | 2017-11-28 22:19 | XR ---
EXAMINATION TYPE: XR shoulder complete LT DATE OF EXAM: 11/28/2017 COMPARISON: NONE HISTORY: Shoulder pain sudden onset TECHNIQUE: 3 views FINDINGS: There is intramedullary beth fixing an old fracture of the midshaft of the humerus. There ar e transverse proximal screws. I see no acute fracture nor dislocation. The glenohumeral joint is shamar omic. There are no pathologic calcifications. IMPRESSION: No acute abnormality of the left shoulder. There is some widening of the AC joint space c onsistent with ligamentous tear of uncertain age.
[2017-11-28 23:13] VITALS: BP 125/86; PULSE 86; RESP 18; TEMP 98.4
== END 2017-11-28 22:51 | disposition home or self-care (01) ==
LOC: EC 21:13
DX: M25.512 Pain in left shoulder (principal); F31.9 Bipolar disorder, unspecified; F41.9 Anxiety disorder, unspecified; F43.10 Post-traumatic stress disorder, unspecified; Z87.891 Personal history of nicotine dependence; Z79.899 Other long term (current) drug therapy
CPT/HCPCS: 99284

== ENCOUNTER → 2017-12-11 | Outpatient (CLI) | payer OTHER, BC ==
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
== END | disposition home or self-care (01) ==
LOC: RADUSMAIN 10:40
PROVIDERS: ATTEND Orthopaedic Surgery
DX: M75.102 Unspecified rotator cuff tear or rupture of left shoulder, not specified as traumatic (principal); M67.814 Other specified disorders of tendon, left shoulder

== ENCOUNTER 2018-02-09 18:08 | Emergency (ER) | payer OTHER, BC ==
[2018-02-09] MEDS ORDERED: methylPREDNISolone SOD SUCCI 125 MG/2 ML VIAL IV STA (19:23)
[2018-02-09] MEDS ORDERED: METHOCARBAMOL 500 MG TAB PO STA (19:23)
[2018-02-09] MEDS ORDERED: KETOROLAC 30 MG/ML 1 ML VIAL IVP STA (19:23)
[2018-02-09] MEDS ORDERED: MORPHINE SULFATE 2 MG/ML SYRINGE IVP STA (19:23)
[2018-02-09] MEDS ORDERED: LIDOCAINE 5% PATCH TOPICAL STA (19:26)
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
[2018-02-09 20:08] VITALS: RESP 18
--- NOTE | 2018-02-09 20:38 | XR ---
Left shoulder HISTORY: Left shoulder pain 3 views of the left shoulder Correlation to prior exam 11/28/2017 Postop changes again noted to the proximal left humerus. Alignment is stable, bone mineralization is unchanged. Postop change noted to the cervical spine. No fracture or dislocation. Left lung apex as v isualized is normal. IMPRESSION: Stable exam, no acute abnormality.
[2018-02-09 21:08] VITALS: BP 117/77; PULSE 77; TEMP 98
== END 2018-02-09 21:08 | disposition home or self-care (01) ==
LOC: EC 18:08
DX: M25.512 Pain in left shoulder (principal); F31.9 Bipolar disorder, unspecified; F41.9 Anxiety disorder, unspecified; F43.10 Post-traumatic stress disorder, unspecified; Z87.891 Personal history of nicotine dependence; Z79.899 Other long term (current) drug therapy
CPT/HCPCS: 73030; 99283; 96374; 96375 ×2; J2930; J1885; J2270

== ENCOUNTER 2018-07-26 12:22 | Emergency (ER) | payer BC, OTHER ==
[2018-07-26 12:37] VITALS: RESP 18; TEMP 98.4
[2018-07-26] MEDS ORDERED: MORPHINE SULFATE 4 MG/ML SYRINGE IV STA (12:49)
[2018-07-26] MEDS ORDERED: ONDANSETRON 4 MG/2 ML VIAL IVP STA ×2 (12:49→16:29)
[2018-07-26] MEDS ORDERED: SODIUM CHLORIDE 0.9% 1,000 ML IV STA (12:49)
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
[2018-07-26 13:44] LABS: Basophils % (A) 0 %; Eosinophils # (A) 0.1 k/uL (0-0.7); Eosinophils % (A) 1 %; HCT 37.9 % (34.0-46.0); HGB 12.9 gm/dL (11.4-16.0); Lymphocytes # (A) 1.9 k/uL (1.0-4.8); Lymphocytes % (A) 23 %; MCH 27.8 pg (25.0-35.0); MCHC 34.1 g/dL (31.0-37.0); MCV 81.6 fL (80.0-100.0); Mean Platelet Volume 6.2; Monocytes # (A) 0.4 k/uL (0-1.0); Monocytes % (A) 5 %; Neutrophils # (A) 5.9 k/uL (1.3-7.7); Neutrophils % (A) 69 %; Platelet Count 504 k/uL (150-450); RBC 4.64 m/uL (3.80-5.40); RDW 13.8 % (11.5-15.5); WBC 8.6 k/uL (3.8-10.6)
[2018-07-26 14:02] LABS: ALT 22 U/L (9-52); AST 28 U/L (14-36); Albumin 3.7 g/dL (3.5-5.0); Alkaline Phosphatase 110 U/L (38-126); Amylase 50 U/L (30-110); Anion Gap 9 mmol/L; Blood Urea Nitrogen 9 mg/dL (7-17); Calcium 8.7 mg/dL (8.4-10.2); Carbon Dioxide 24 mmol/L (22-30); Chloride 107 mmol/L (98-107); Glucose 88 mg/dL (74-99); Lipase 24 U/L (23-300); Potassium 4.1 mmol/L (3.5-5.1); Sodium 140 mmol/L (137-145); Total Bilirubin 0.4 mg/dL (0.2-1.3); Total Protein 6.3 g/dL (6.3-8.2)
[2018-07-26 14:08] LABS: Appearance,Urine Cloudy (Clear); Bacteria,Urine Many /hpf; Bilirubin,Urine Negative (Negative); Blood,Urine Negative (Negative); Color,Urine Light Yellow; Glucose,Urine (UA) Negative (Negative); Ketones,Urine Negative (Negative); Leukocyte Esterase,Urine Negative (Negative); Mucus,Urine Rare /hpf; Nitrite,Urine Negative (Negative); Protein,Urine Negative (Negative); RBC,Urine <1 /hpf (0-5); Specific Gravity,Urine 1.005 (1.001-1.035); Squamous Epithelial Cell,Urine 3 /hpf (0-4); Urobilinogen,Urine <2.0 mg/dL (<2.0)
--- NOTE | 2018-07-26 15:12 | CT ---
EXAMINATION TYPE: CT abdomen pelvis w con DATE OF EXAM: 07/26/2018 COMPARISON: Prior CT abdomen 11/02/2017 HISTORY: Abdominal pain CT DLP: 682.1 mGycm Automated exposure control for dose reduction was used. TECHNIQUE: Helical acquisition of images from the lung bases through the pelvis have been completed. CONTRAST: Performed without Oral Contrast and with IV Contrast, patient injected with 100 mL of Isovue 300. FINDINGS: LUNG BASES: Minimal dependent atelectatic changes are present. AORTA: No significant abnormality is appreciated. LIVER/GB: Liver shows low attenuation likely due to hepatic steatosis. Gallbladder is normal. PANCREAS: No significant abnormality is seen. SPLEEN: No significant abnormality is seen. ADRENALS: No significant abnormality is seen. KIDNEYS: No significant abnormality is seen. REPRODUCTIVE ORGANS: No significant abnormality is seen BOWEL: Question colonic wall thickening. Fluid-filled loops of small bowel are present with loops of small bowel showing some wall thickening. The appendix is normal. FREE AIR: No Free Air visible. ASCITES: None visible. PELVIC ADENOPATHY: None visualized. RETROPERITONEAL ADENOPATHY: No Retroperitoneal Adenopathy visible. URINARY BLADDER: No significant abnormality is seen. OSSEOUS STRUCTURES: No significant abnormality is seen. IMPRESSION: CORRELATE FOR ENTERITIS, COLITIS. Hepatic steatosis.
[2018-07-26] MEDS ORDERED: DICYCLOMINE 10 MG/ML 2 ML AMP IM STA (15:28)
[2018-07-26] MEDS ORDERED: HYDROmorphone 1 MG/ML 1 ML SYRINGE IVP STA (16:29)
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
[2018-07-26] MEDS ORDERED: KETOROLAC 30 MG/ML 1 ML VIAL IVP STA (17:46)
[2018-07-26 18:04] VITALS: BP 152/98; PULSE 84
== END 2018-07-26 18:23 | disposition home or self-care (01) ==
LOC: EC 12:22
DX: R10.31 Right lower quadrant pain (principal); R11.10 Vomiting, unspecified; F31.9 Bipolar disorder, unspecified; F41.9 Anxiety disorder, unspecified; F43.10 Post-traumatic stress disorder, unspecified; M86.9 Osteomyelitis, unspecified; Z87.891 Personal history of nicotine dependence; Z79.899 Other long term (current) drug therapy
CPT/HCPCS: 36415; 74177; 76856; 80053; 81001; 81025; 82150; 83690; 85025; 96361; 96372; 96374; 96375; 96376; 99284

== ENCOUNTER 2018-07-28 10:12 | Emergency (ER) | payer BC ==
[2018-07-28 10:40] VITALS: RESP 18; TEMP 98.2
[2018-07-28] MEDS ORDERED: SODIUM CHLORIDE 0.9% 1,000 ML IV STA (10:57)
[2018-07-28] MEDS ORDERED: ONDANSETRON 4 MG/2 ML VIAL IVP STA (11:02)
[2018-07-28] MEDS ORDERED: PANTOPRAZOLE 40 MG/10 ML VIAL IVP STA (11:02)
[2018-07-28] MEDS ORDERED: ACETAMINOPHEN IV (For NPO) 1,000 MG in EMPTY BAG 1 BAG IVPB STA (11:03)
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
[2018-07-28 12:10] LABS: Appearance,Urine Turbid (Clear); Bacteria,Urine Occasional /hpf; Bilirubin,Urine Negative (Negative); Blood,Urine Negative (Negative); Color,Urine Yellow; Glucose,Urine (UA) Negative (Negative); Ketones,Urine Negative (Negative); Leukocyte Esterase,Urine Moderate (Negative); Mucus,Urine Occasional /hpf; Nitrite,Urine Negative (Negative); PH, Urine 7.5 (5.0-8.0); Protein,Urine 1+ (Negative); RBC,Urine 1 /hpf (0-5); Specific Gravity,Urine 1.018 (1.001-1.035); Squamous Epithelial Cell,Urine 22 /hpf (0-4); Urobilinogen,Urine <2.0 mg/dL (<2.0)
[2018-07-28 12:22] LABS: Basophils % (A) 0 %; Eosinophils # (A) 0.1 k/uL (0-0.7); Eosinophils % (A) 1 %; HCT 39.3 % (34.0-46.0); HGB 12.3 gm/dL (11.4-16.0); Hypochromasia Slight; Lymphocytes # (A) 1.4 k/uL (1.0-4.8); Lymphocytes % (A) 15 %; MCH 26.9 pg (25.0-35.0); MCHC 31.3 g/dL (31.0-37.0); Mean Platelet Volume 6.4; Monocytes # (A) 0.5 k/uL (0-1.0); Monocytes % (A) 6 %; Neutrophils % (A) 76 %; Platelet Count 390 k/uL (150-450); RBC 4.57 m/uL (3.80-5.40); WBC 9.2 k/uL (3.8-10.6)
[2018-07-28 12:49] LABS: ALT 25 U/L (9-52); AST 28 U/L (14-36); Albumin 3.3 g/dL (3.5-5.0); Alkaline Phosphatase 101 U/L (38-126); Amylase 47 U/L (30-110); Anion Gap 6 mmol/L; Blood Urea Nitrogen 13 mg/dL (7-17); Calcium 8.7 mg/dL (8.4-10.2); Carbon Dioxide 23 mmol/L (22-30); Chloride 107 mmol/L (98-107); Glucose 88 mg/dL (74-99); Lipase 16 U/L (23-300); Potassium 4.2 mmol/L (3.5-5.1); Sodium 136 mmol/L (137-145); Total Bilirubin 0.5 mg/dL (0.2-1.3); Total Protein 5.8 g/dL (6.3-8.2)
[2018-07-28] MEDS ORDERED: HYDROmorphone 1 MG/ML 1 ML SYRINGE IVP STA (13:05)
--- NOTE | 2018-07-28 13:17 | US ---
EXAMINATION TYPE: US abdomen APPY DATE OF EXAM: 07/28/2018 COMPARISON: CT 2018 CLINICAL HISTORY: Pain. RLQ pain and N/V x 4 days APPENDIX Appendix not seen with certainty at this time, visualized portions of RLQ appear wnl. IMPRESSION: NONDIAGNOSTIC EXAMINATION.
--- NOTE | 2018-07-28 13:18 | US ---
EXAMINATION TYPE: US abdomen limited DATE OF EXAM: 07/28/2018 COMPARISON: CT 2018 CLINICAL HISTORY: Pain. RLQ pain and N/V x 4 days EXAM MEASUREMENTS: Liver Length: 15.4 cm Gallbladder Wall: 0.2 cm CBD: 0.5 cm Right Kidney: 9.8 x 4.0 x 4.3 cm Pancreas: visualized portions wnl, tail obscured by overlying midline bowel gas Liver: wnl Gallbladder: wnl Evidence for sonographic Gil's sign: yes CBD: wnl Right Kidney: wnl Limited views of the pancreas are normal. The liver is normal in size without biliary dilatation. The gallbladder is unremarkable. The gallbladder wall measures 2 mm. The distal common hepatic duct m easures 5 mm. There is right upper quadrant tenderness. The right kidney is unremarkable. IMPRESSION: WITH THE EXCEPTION OF SOME RIGHT UPPER QUADRANT TENDERNESS, NO ACUTE ABNORMALITY IS SEEN.
--- NOTE | 2018-07-28 13:38 | XR ---
EXAMINATION TYPE: XR KUB , 3 VIEWS DATE OF EXAM ORDERED: 07/28/2018 HISTORY: abdominal pain. COMPARISON: None. FINDINGS: The lung bases are clear. The abdominal gas pattern is within normal limits. There is no evidence of obstruction or free air. N o unusual calcifications are seen. IMPRESSION: NO ACUTE INTRA-ABDOMINAL ABNORMALITY.
--- NOTE | 2018-07-28 13:39 | XR ---
EXAMINATION TYPE: XR chest 2V DATE OF EXAM ORDERED: 07/28/2018 HISTORY: vomiting. REFERENCE: None. FINDINGS: The lungs are clear. Pleural spaces are clear. Heart size is normal. IMPRESSION: NORMAL CHEST.
[2018-07-28 14:19] VITALS: BP 131/101; PULSE 64
[2018-07-28] MEDS ORDERED: METOCLOPRAMIDE 5 MG/ML 2 ML VIAL IVP STA (14:48)
== END 2018-07-28 15:15 | disposition home or self-care (01) ==
LOC: EC 10:12
DX: R10.11 Right upper quadrant pain (principal); R10.31 Right lower quadrant pain; R11.2 Nausea with vomiting, unspecified; R19.7 Diarrhea, unspecified; F41.9 Anxiety disorder, unspecified; F31.9 Bipolar disorder, unspecified; Z87.891 Personal history of nicotine dependence; Z79.899 Other long term (current) drug therapy; Z98.890 Other specified postprocedural states
CPT/HCPCS: 36415; 80053; 82150; 83690; 85025; 81001; 81025; 87086; 71046; 74018; 76705; 99284; 96374; 96375 ×4; 96361; J2765; J2405; J1170; J0131; C9113

== ENCOUNTER → 2018-08-09 | Outpatient (CLI) | payer BC ==
--- NOTE | 2018-08-10 00:05 | NM ---
EXAMINATION TYPE: NM hepatobiliary wo EF DATE OF EXAM: 08/09/2018 COMPARISON: NONE HISTORY: Cholecystectomy on 08/04/2018. Abdominal pain. TECHNIQUE: After the intravenous administration of 4.76 mCi Tc 99m Mebrofenin hepatobiliary scintigra phy is performed. Immediate images post injection. FINDINGS: There is prompt uptake of the tracer by the liver that has normal size and contour. There are no foca l liver defect. There is tracer in the small bowel at 6 minutes. Tracers mostly cleared from the live r at 1 hour. Tracers seen in the small bowel. There is no evidence of contrast extravasation. IMPRESSION: Normal exam. No evidence of a bile leak.
== END ==
LOC: RADNMMAIN 22:30
PROVIDERS: ATTEND Surgery
DX: R10.9 Unspecified abdominal pain (principal); Z98.890 Other specified postprocedural states
CPT/HCPCS: 78226; A9537

== ENCOUNTER → 2018-11-20 | Outpatient (CLI) | payer BC, OTHER ==
--- NOTE | 2018-11-20 14:17 | US ---
EXAMINATION TYPE: US pelvis complete transvag DATE OF EXAM: 11/20/2018 COMPARISON: US 07/26/2018, CT 07/26/2018 CLINICAL HISTORY: N83.202 OVARIAN CYST LT SIDE,N83.201 OVARIAN CYST RT SIDE. Patient states she had a scan done at another facility that showed ovarian cysts TECHNIQUE: . Transabdominal sonographic images of the pelvis were acquired. Transvaginal sonographi c images were medically necessary to better assess the following anatomy: Uterus and ovaries Date of LMP: Unknown EXAM MEASUREMENTS: Uterus: 6.5 x 4.1 x 4.2 cm Endometrial Stripe: 0.9 cm Right Ovary: 3.2 x 2.4 x 2.0 cm Left Ovary: 2.8 x 2.5 x 1.8 cm 1. Uterus: Retroverted wnl 2. Endometrium: wnl 3. Right Ovary: Follicles visualized, largest measuring 1.2 cm, wnl 4. Left Ovary: Multiple follicles visualized, wnl 5. Bilateral Adnexa: wnl 6. Posterior cul-de-sac: wnl IMPRESSION: Numerous follicles bilaterally are likely physiologic measuring up to 1.2 cm. Some of the se within the left ovary are peripherally oriented in correlation with serum laboratory values could be performed to evaluate for polycystic ovarian syndrome.
== END | disposition home or self-care (01) ==
LOC: RADUSWWP 13:20
PROVIDERS: ATTEND Family Medicine
DX: N83.202 Unspecified ovarian cyst, left side (principal); N83.201 Unspecified ovarian cyst, right side
CPT/HCPCS: 76830; 76856

== ENCOUNTER → 2019-01-17 | Day surgery (SDC) | payer BC, OTHER ==
[2019-01-15 13:16] VITALS: BMI 28.7
[~2019-01-17] MED LIST changes: +BUPIVACAINE (PF) 0.25% 30 ML VIAL SQ ONE; +DEXAMETHASONE SOD PHOSPHATE 10 MG/ML 1 ML VIAL IV ONE; +HYDROmorphone (PF) 1 MG/ML ONE; +HYDROmorphone 0.5 MG/0.5 ML SYRINGE IVP PRN; +KETOROLAC 30 MG/ML 1 ML VIAL IVP SCH; +KETOROLAC 30 MG/ML 1 ML VIAL ONE; +LACTATED RINGERS 1,000 ML IV SCH; +LIDOCAINE 1% 20 ML VIAL (10MG/ML) FOR IV START INTRADERMA PRN; +LIDOCAINE 1% INJ 10MG/ML (20 ML MDV) ONE; +LIDOCAINE 1%-EPI 1:100,000 20 ML VIAL SQ ONE; +METOCLOPRAMIDE 5 MG/ML 2 ML VIAL IVP PRN; +MIDAZOLAM (PF) 2 MG/2 ML VIAL IVP ONE; +MIDAZOLAM 2 MG/2 ML VIAL ONE; +ONDANSETRON 4 MG/2 ML VIAL IVP ONE; +ONDANSETRON 4 MG/2 ML VIAL IVP PRN; +PROPOFOL 10 MG/ML 20 ML VIAL IV ONE; +SCOPOLAMINE 1.5MG/72HR PATCH TRANSDERM ONE; +diphenhydrAMINE 50 MG/ML 1 ML VIAL ONE; +fentaNYL (PF) 50 MCG/ML 2 ML AMP IV ONE; +fentaNYL (PF) 50 MCG/ML 2 ML AMP ONE; -metroNIDAZOLE-NS PMX 500 MG in SALINE 1 100ML.BAG IVPB ONE
[2019-01-17 14:34] VITALS: TEMP 97.1
--- NOTE | 2019-01-17 14:35 | FL ---
EXAMINATION TYPE: FL guidance operating room DATE OF EXAM: 01/17/2019 CLINICAL HISTORY: Fluoroscopic documentation during an ORIF of the hand TECHNIQUE: Fluoroscopy. COMPARISON: None. FINDINGS: Fluoroscopic guidance was provided during pain relief procedure performed by Dr. Bev suarez . A total of 74 seconds of fluoroscopic time was utilized during the procedure and 7 spot images a re acquired. Images acquired shows open reduction internal fixation of the fifth metacarpal, unspecif ied laterality. IMPRESSION: As Above.
[2019-01-17 15:11] VITALS: PULSE 90; RESP 17
[2019-01-17 15:12] VITALS: BP 124/81
--- NOTE | 2019-01-17 18:31 | P.OP ---
Date of Procedure: 01/17/19 Preoperative Diagnosis: Displaced, right fifth metacarpal shaft fracture Postoperative Diagnosis: Displaced, right fifth metacarpal shaft fracture Procedure(s) Performed: Internal fixation of right fifth metacarpal shaft fracture with retrograde intramedullary screw Implants: Synthes 3.0 mm headless compression screw, 40 mm, short thread Anesthesia: GETA, bernardo, local Surgeon: Hao Porter Pin Feather Machine Operator #1: Crystal Ferraro Estimated Blood Loss (ml): 1 Condition: stable Disposition: PACU Indications for Procedure: The patient is a 28-year-old female who sustained a displaced right fifth metacarpal shaft fracture. Treatment options (and associated risks and benefits) were discussed in the office. Surgical treatment was recommended. In preop, the patient denied any additional questions or concerns and wished to proceed with surgery. Consent forms were signed. In preop, the surgical site was confirmed and marked. Description of Procedure: The patient was administered a regional nerve block by the anesthesia team then brought to the operating suite. The patient was positioned supine with the operative limb on an arm board. All bony prominences were well padded. Anesthesia was administered uneventfully. Prophylactic IV antibiotics were administered. A tourniquet was placed on the operative arm which was then prepped and draped in standard, sterile fashion. A timeout was performed which confirmed the patient, the operative side, the site and the procedure to be performed. All team members expressed agreement. The limb was exsanguinated with an Esmarch and the tourniquet was inflated. The small finger showed a visible rotation deformity. The fracture was assessed with intraoperative fluoroscopy. Mild displacement was present that corrected with manual reduction. Excellent alignment was confirmed on imaging. The decision was made to proceed with intramedullary fixation. Longitudinal incision was made over the fifth metacarpal head. The skin was sharply incised. Spreading dissection proceeded down to the extensor mechanism. The extensor tendon at the level of the metacarpal head was broad with no clear division between the EDC and EDM tendons. A small incision was made in the radial sagittal band. Attempts to mobilize the tendons did not afford sufficient access to the starting point. A small longitudinal split was made in the center of the extensor tendon. This was carefully mobilized. A small capsulotomy was made. A 1.1 mm guidewire was selected. The starting point for the wire was confirmed on orthogonal imaging. With the fracture held reduced, the wire was advanced retrograde down the medullary canal and across the fracture site. The cannulated drill was inserted by hand, taking care to protect the extensor tendons. Holding the fracture reduced and controlling rotation, a 3.0 mm headless compression screw was inserted over the guidewire. This achieved good purchase within the proximal fragment. The head of the screw was completely recessed below the articular cartilage of the metacarpal head. This was confirmed visually and with imaging. The guidewire was removed. Final x-rays were obtained which revealed excellent alignment and reduction. T he fracture was then stressed under live fluoroscopy - no motion was appreciated at the fracture site. The tourniquet was released after 57 minutes at 250 mm Hg and good hemostasis was confirmed. An angiocatheter was used to irrigate the joint with normal saline. The split in the extensor tendon and sagittal band were repaired with 4-0 Ethibond using interrupted [id number] sutures. The incision was closed with interrupted 5-0 Nylon sutures. Local anesthetic with epinephrine was injected into the perioperative subcutaneous tissues for adjunctive postoperative pain control and hemostasis. A soft, sterile dressing was applied. All sponge, needle and instrument counts were correct at the end of the case. The patient tolerated the procedure well and was taken to the recovery room in stable condition.
== END | disposition home or self-care (01) ==
LOC: OR 10:40
PROVIDERS: ATTEND Orthopaedic Surgery
DX: S62.326A Displaced fracture of shaft of fifth metacarpal bone, right hand, initial encounter for closed fracture (principal); W23.0XXA Caught, crushed, jammed, or pinched between moving objects, initial encounter; F31.9 Bipolar disorder, unspecified; F41.9 Anxiety disorder, unspecified; Z87.891 Personal history of nicotine dependence; Z90.49 Acquired absence of other specified parts of digestive tract; H53.8 Other visual disturbances; Z97.3 Presence of spectacles and contact lenses; Z79.891 Long term (current) use of opiate analgesic; Z79.899 Other long term (current) drug therapy; Z88.1 Allergy status to other antibiotic agents
CPT/HCPCS: 26615; 64413; 81025; C1713; J2250 ×2; J1200; J1100; J2405; J2001; J3010; J1885; J1170; J2704; J0690

== ENCOUNTER 2023-03-23 09:01 | Emergency (ER) | payer BC, OTHER ==
[2023-03-23 09:07] VITALS: BP 113/59; PULSE 110; RESP 20; TEMP 98.2
[2023-03-23] MEDS ORDERED: HYDROcodone/APAP 5-325MG 1 EACH TAB PO STA ×2 (09:49→11:38)
[2023-03-23] MEDS ORDERED: KETOROLAC 15 MG/ML 1 ML VIAL IM STA ×2 (09:49→11:38)
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
--- NOTE | 2023-03-23 10:29 | XR ---
EXAMINATION TYPE: XR foot complete RT DATE OF EXAM: 03/23/2023 CLINICAL HISTORY: pain TECHNIQUE: Frontal, lateral and oblique images of the right foot are obtained. COMPARISON: None. FINDINGS: Oblique fracture distal diaphysis right fifth digit with displacement of 4.5 mm. Soft tissu e swelling. No additional fractures seen. The joint spaces appear within normal limits. The overlyi ng soft tissue appears unremarkable. IMPRESSION: Fracture as discussed.
--- NOTE | 2023-03-23 10:40 | XR ---
EXAMINATION TYPE: XR ankle complete RT DATE OF EXAM: 03/23/2023 COMPARISON: NONE HISTORY: Pain TECHNIQUE: Frontal, lateral and oblique images of the right ankle are obtained. COMPARISON: None. FINDINGS: There is no acute fracture/dislocation evident. The joint spaces appear within normal bell its. The overlying soft tissue appears unremarkable. Previously described fracture of the fifth meta tarsal. IMPRESSION: There is no acute fracture or dislocation seen about the ankle.
== END 2023-03-23 12:05 | disposition home or self-care (01) ==
LOC: EC 09:01
DX: S92.911A Unspecified fracture of right toe(s), initial encounter for closed fracture (principal); F90.9 Attention-deficit hyperactivity disorder, unspecified type; F41.9 Anxiety disorder, unspecified; F31.9 Bipolar disorder, unspecified; F12.90 Cannabis use, unspecified, uncomplicated; Z88.6 Allergy status to analgesic agent; W22.8XXA Striking against or struck by other objects, initial encounter
CPT/HCPCS: 73610; 73630; 99283; 96372; 29515; J1885